=== PATIENT | female | born 1990 | race Hispanic/Latino ===

== ENCOUNTER 2018-08-25 20:14 | Emergency (ER) | payer SELFPAY ==
[2018-08-25] MEDS ORDERED: HYDROCODONE/APAP 10/325 TAB ONE (20:51)
[2018-08-25] MEDS ORDERED: KETOROLAC 30 MG/ML INJ ONE (21:10)
--- NOTE | 2018-08-25 21:13 | EDPHYS ---
Physician Documentation [facility] Name: Tyree Patel Age: 28 yrs Sex: Female : 1990 Arrival Date: 08/25/2018 Time: 20:17 Bed 6 Private MD: ED Physician Kian Pérez HPI: 08/25 20:46 This 28 yrs old Female presents to ER via EMS with complaints of Knee Pain. sergey 20:46 The patient presents with decreased range of motion, pain, that is acute. The sergey complaints affect the left knee. Context: The problem was sustained at a sports field or court. Onset: The symptoms/episode began/occurred just prior to arrival. Modifying factors: The symptoms are alleviated by elevating leg, remaining still, the symptoms are aggravated by movement, weight bearing, bending knee. Associated signs and symptoms: The patient has no apparent associated signs or symptoms. Treatment prior to arrival includes: no previous treatment. The patient has not experienced similar symptoms in the past. 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 - Social history:: Smoking status: Patient/guardian denies using tobacco. - Ebola Screening: : No symptoms or risks identified at this time. - Family history:: not pertinent. ROS: 20:46 Constitutional: Negative for fever, chills, and weight loss, Eyes: Negative for injury, sergey pain, redness, and discharge, ENT: Negative for injury, pain, and discharge, Neck: Negative for injury, pain, and swelling, Cardiovascular: Negative for chest pain, palpitations, and edema, Respiratory: Negative for shortness of breath, cough, wheezing, and pleuritic chest pain, Abdomen/GI: Negative for abdominal pain, nausea, vomiting, diarrhea, and constipation, Back: Negative for injury and pain, : Negative for injury, bleeding, discharge, and swelling, Skin: Negative for injury, rash, and discoloration, Neuro: Negative for headache, weakness, numbness, tingling, and seizure, Psych: Negative for depression, anxiety, suicide ideation, homicidal ideation, and hallucinations, Allergy/Immunology: Negative for hives, rash, and allergies, Endocrine: Negative for neck swelling, polydipsia, polyuria, polyphagia, and marked weight changes, Hematologic/Lymphatic: Negative for swollen nodes, abnormal bleeding, and unusual bruising. 20:46 MS/extremity: Positive for decreased range of motion, pain, swelling, tenderness, of the left knee. Exam: 20:46 Constitutional: This is a well developed, well nourished patient who is awake, alert, sergey and in no acute distress. Head/Face: Normocephalic, atraumatic. Eyes: Pupils equal round and reactive to light, extra-ocular motions intact. Lids and lashes normal. Conjunctiva and sclera are non-icteric and not injected. Cornea within normal limits. Periorbital areas with no swelling, redness, or edema. ENT: Nares patent. No nasal discharge, no septal abnormalities noted. Tympanic membranes are normal and external auditory canals are clear. Oropharynx with no redness, swelling, or masses, exudates, or evidence of obstruction, uvula midline. Mucous membranes moist. Neck: Trachea midline, no thyromegaly or masses palpated, and no cervical lymphadenopathy. Supple, full range of motion without nuchal rigidity, or vertebral point tenderness. No Meningismus. Chest/axilla: Normal chest wall appearance and motion. Nontender with no deformity. No lesions are appreciated. Cardiovascular: Regular rate and rhythm with a normal S1 and S2. No gallops, murmurs, or rubs. Normal PMI, no JVD. No pulse deficits. Respiratory: Lungs have equal breath sounds bilaterally, clear to auscultation and percussion. No rales, rhonchi or wheezes noted. No increased work of breathing, no retractions or nasal flaring. Abdomen/GI: Soft, non-tender, with normal bowel sounds. No distension or tympany. No guarding or rebound. No evidence of tenderness throughout. Back: No spinal tenderness. No costovertebral tenderness. Full range of motion. Skin: Warm, dry with normal turgor. Normal color with no rashes, no lesions, and no evidence of cellulitis. Neuro: Awake and alert, GCS 15, oriented to person, place, time, and situation. Cranial nerves II-XII grossly intact. Motor strength 5/5 in all extremities. Sensory grossly intact. Cerebellar exam normal. Normal gait. Psych: Awake, alert, with orientation to person, place and time. Behavior, mood, and affect are within normal limits. 20:46 Musculoskeletal/extremity: ROM: limited active range of motion, limited passive range of motion, Circulation is intact in all extremities. Sensation intact. Compartment Syndrome exam of affected extremity: is normal. DVT Exam: No signs of deep vein thrombosis. no tenderness, negative Homans' sign noted on exam, no appreciated bluish discoloration, no erythema, no increased warmth, pain, swelling, that is moderate, of the left leg, of the left knee. Vital Signs: 20:19 BP 137 / 73; Pulse 74; Resp 18; Temp 97.8; Pulse Ox 100% on R/A; Weight 83.91 kg (R); ak1 Height 5 ft. 1 in. (154.94 cm) (R); Pain 2/10; 21:40 BP 127 / 72; Pulse 71; Resp 16; Pulse Ox 100% on R/A; ao 20:19 Body Mass Index 34.96 (83.91 kg, 154.94 cm) ak1 MDM: 20:35 Patient medically screened. sergey 20:52 Data reviewed: vital signs, nurses notes, radiologic studies, plain films. [facility] 08/25 20:46 Order name: Knee Left 3 View XRAY; Complete Time: 21:36 [facility] 08/25 20:46 Order name: Ice pack; Complete Time: 20:47 [facility] 08/25 20:46 Order name: Knee Immobilizer; Complete Time: 22:18 [facility] 08/25 20:46 Order name: Crutches; Complete Time: 22:18 sergey Administered Medications: 20:47 Drug: [place] 10 mg-325 mg 1 tabs Route: PO; ea 22:17 Follow up: Response: No adverse reaction ao 21:06 CANCELLED (Duplicate Order): TORadol 60 mg IM once ea 21:06 Drug: TORadol 30 mg Route: IVP; Site: right antecubital; ea 22:18 Follow up: Response: No adverse reaction ao Disposition: 08/25/18 21:12 Discharged to Home. Impression: Other internal derangements of left knee, Internal derangement of knee, Sprain of medial collateral ligament of knee. - Condition is Stable. - Discharge Instructions: Knee Pain, Knee Arthroscopy, Knee Ligament Injury, Arthroscopy. - Prescriptions for Ibuprofen 600 mg Oral Tablet - take 1 tablet by ORAL route every 8 hours As needed take with food; 21 tablet. Tylenol- Codeine #3 300-30 mg Oral Tablet - take 2 tablet by ORAL route every 6 hours As needed; 30 tablet. - Medication Reconciliation Form, Thank You Letter, Antibiotic Education, Prescription Opioid Use, Work release form form. - Follow up: Private Physician; When: 2 - 3 days; Reason: Recheck today's complaints, Continuance of care, Re-evaluation by your physician. Follow up: Piotr Blanton; When: 2 - 3 days; Reason: Recheck today's complaints, Re-evaluation by your physician. - Problem is new. - Symptoms have improved. Signatures: Dispatcher [employer] EDMS Kian Pérez MD MD cha Krenek, Amber RN RN ak1 Ang Freedman RN RN Gricelda Walter RN RN ea Corrections: (The following items were deleted from the chart) 21:06 20:46 TORadol 60 mg IM once ordered. sergey cabral 21:06 21:06 TORadol 60 mg IM once ordered. marianna cabral 22:15 21:12 08/25/2018 21:12 Discharged to Home. Impression: Other internal derangements of ao left knee; Internal derangement of knee; Sprain of medial collateral ligament of knee. Condition is Stable. Discharge Instructions: Knee Pain, Knee Arthroscopy, Knee Ligament Injury, Arthroscopy. Prescriptions for Ibuprofen 600 mg Oral Tablet - take 1 tablet by ORAL route every 8 hours As needed take with food; 21 tablet, Tylenol-Codeine #3 300-30 mg Oral Tablet - take 2 tablet by ORAL route every 6 hours As needed; 30 tablet. and Forms are Medication Reconciliation Form, Thank You Letter, Antibiotic Education, Prescription Opioid Use. Follow up: Private Physician; When: 2 - 3 days; Reason: Recheck today's complaints, Continuance of care, Re-evaluation by your physician. Follow up: Piotr Blanton; When: 2 - 3 days; Reason: Recheck today's complaints, Re-evaluation by your physician. Problem is new. Symptoms have improved. sergey
--- NOTE | 2018-08-25 21:13 | ER ---
Nurse's Notes [facility] Name: Tyree Patel Age: 28 yrs Sex: Female : 1990 Arrival Date: 08/25/2018 Time: 20:17 Bed 6 Private MD: Diagnosis: Other internal derangements of left knee;Internal derangement of knee;Sprain of medial collateral ligament of knee Presentation: 08/25 20:17 Presenting complaint: Patient states: left knee pain s/p collision with player on ak[place] volleyball court. EMS given 4mg zofran, 100mcg fentanyl [employer]ATION[employer]MAN. Transition of care: patient was not received from another setting of care. Onset of symptoms was August 25, 2018. Risk Assessment: Do you want to hurt yourself or someone else? Patient reports no desire to harm self or others. Initial Sepsis Screen: Does the patient meet any 2 criteria? No. Patient's initial sepsis screen is negative. Does the patient have a suspected source of infection? No. Patient's initial sepsis screen is negative. Care prior to arrival: 20g IV to right forearm. 20:17 Method Of Arrival: EMS: [facility] ak 20:17 Acuity: RAVIN 4 ak1 Triage Assessment: 20:19 General: Appears uncomfortable, Behavior is cooperative. Pain: Complains of pain in ak1 left knee. 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 - Social history:: Smoking status: Patient/guardian denies using tobacco. - Ebola Screening: : No symptoms or risks identified at this time. - Family history:: not pertinent. Screenin:20 Abuse screen: Denies threats or abuse. Denies injuries from another. Nutritional ak1 screening: No deficits noted. Tuberculosis screening: No symptoms or risk factors identified. Fall Risk None identified. Assessment: 20:24 General: Appears in no apparent distress. uncomfortable, Behavior is calm, cooperative, ao appropriate for age. Pain: Complains of pain in Left knee pain with no CO pain at this time since patient got Fentanyl from EMS. Neuro: Level of Consciousness is awake, alert, obeys commands, Oriented to person, place, time, situation, Appropriate for age Moves all extremities. Full function Speech is normal, Facial symmetry appears normal. Cardiovascular: Heart tones S1 S2 Capillary refill < 3 seconds Patient's skin is warm and dry. Respiratory: Airway is patent Respiratory effort is even, unlabored, Respiratory pattern is regular, symmetrical. GI: Abdomen is non-distended. : No signs and/or symptoms were reported regarding the genitourinary system. EENT: No signs and/or symptoms were reported regarding the EENT system. Derm: Skin is intact, Skin is pink, warm \T\ dry. normal, Skin temperature is warm. Musculoskeletal: Swelling present in left knee Reports pain in left knee Pain is 2 out of 10 on a pain scale. Injury Description: patient playing ball when got injure with another player. 21:20 Reassessment: Patient appears in no apparent distress at this time. Patient and/or ao family updated on plan of care and expected duration. Pain level reassessed. 22:14 Reassessment: DC instructions given to patient. Patient agree to follow up with ortho. ao no questions at this time. Vital Signs: 20:19 BP 137 / 73; Pulse 74; Resp 18; Temp 97.8; Pulse Ox 100% on R/A; Weight 83.91 kg (R); ak1 Height 5 ft. 1 in. (154.94 cm) (R); Pain 2/10; 21:40 BP 127 / 72; Pulse 71; Resp 16; Pulse Ox 100% on R/A; ao 20:19 Body Mass Index 34.96 (83.91 kg, 154.94 cm) ak1 ED Course: 20:17 Patient arrived in ED. ak1 20:18 Triage completed. ak1 20:19 Arm band placed on Patient placed in an exam room, on a stretcher, on pulse oximetry, ak1 Patient notified of wait time. 20:20 Patient has correct armband on for positive identification. Bed in low position. Call ak1 light in reach. Side rails up X2. Pulse ox on. NIBP on. 20:20 Maintain EMS IV. Dressing intact. Site clean \T\ dry. Gauge \T\ site: 20g right forearm.. ak 1 20:24 Freedman, Ang, RN is Primary Nurse. ao 20:35 Kian Pérez MD is Attending Physician. sergey 21:10 Knee Left 3 View XRAY In Process Unspecified. EDMS 21:12 Piotr Blanton MD is Referral Physician. sergey 22:13 No provider procedures requiring assistance completed. IV discontinued, intact, ao bleeding controlled, No redness/swelling at site. Pressure dressing applied. Administered Medications: 20:47 Drug: [place] 10 mg-325 mg 1 tabs Route: PO; ea 22:17 Follow up: Response: No adverse reaction ao 21:06 CANCELLED (Duplicate Order): TORadol 60 mg IM once ea 21:06 Drug: TORadol 30 mg Route: IVP; Site: right antecubital; ea 22:18 Follow up: Response: No adverse reaction ao Outcome: 21:12 Discharge ordered by . sergey 22:13 Discharged to home ambulatory, with crutches. ao 22:13 Condition: stable 22:13 Discharge instructions given to patient, Instructed on discharge instructions, follow up and referral plans. Demonstrated understanding of instructions, follow-up care, medications, Prescriptions given X 2. 22:15 Patient left the ED. ao Signatures: Dispatcher [employer] EDGA Kian Pérez MD MD cha Krenek, Amber RN RN ak1 Ang Freedman, RN RN Gricelda Walter RN RN marianna
--- NOTE | 2018-08-25 21:22 | RAD REPORT ---
EXAM DESCRIPTION: RAD - Knee Left 3 View - 08/25/2018 9:10 pm CLINICAL HISTORY: Knee pain following blunt force trauma COMPARISON: None. FINDINGS: No gross fracture deformity seen. No dislocation or periosteal reaction.No joint effusion identified. On the AP projection there is a small bone density adjacent to the medial femoral condyle s. This is not identifiable on the other projections. Traumatic bone avulsion is unlikely. No joint s pace narrowing. No soft tissue abnormality. IMPRESSION: No fracture confirmed on this study and no joint effusion or other acute process seen. Clinical concerns for internal derangement or occult bony injury could be further assessed with MR im aging.
== END 2018-08-25 22:15 | disposition home or self-care (01) ==
LOC: ER 20:14
DX: S83.412A Sprain of medial collateral ligament of left knee, initial encounter (principal); M23.8X2 Other internal derangements of left knee; W50.0XXA Accidental hit or strike by another person, initial encounter; Y93.68 Activity, volleyball (beach) (court); Y92.318 Other athletic court as the place of occurrence of the external cause; Y99.8 Other external cause status
CPT/HCPCS: 96374; 99284

== ENCOUNTER 2020-04-18 03:52 | Emergency (ER) | payer BC ==
--- OUTSIDE RECORDS SUMMARY | 2020-04-18 03:56 | XMS REPORT | Continuity of Care Document ---
:1990 Author Organization [facility] t Address [address] [place] [address] Care Team Providers Name Role Phone Unavailable Unavailable Unavailable Payers Payer Name Policy Type Policy Number Effective Date Expiration Date S ource Problems This patient has no known problems. Allergies, Adverse Reactions, Alerts Allergy Allergy Status Severity Reaction(s) Onset Inactive Treating Comm ents Source Name Type Date Date Clinician No Known DA Active U 2020-0 [facility] [place] No Known DA Active U 2020-0 [facility] [place] No Known DA Active U 2019-0 [facility] [place] No Known DA Active U 2014-0 [facility] [place] Medications This patient has no known medications. Procedures This patient has no known procedures. Results Test Description Test Time Test Comments Results Result Comments Source FALLOPIAN 2020-02-28 TUBE,STERILIZATION 11:40:00 RUN DATE: 02/28/20 [facility] PAGE 1 RUN TIME: 1338 Specimen Inquiry RUN USER: INTERFACE PATIENT: JOHANNA HERNANDEZ LOC: [facility] U #: [id number] AGE/SX: 29/F ROOM: [facility] RE02/26/20REG DR: Naomi Saldivar DO : [birth year] BED: A DIS: 02/28/20 STATUS: DIS IN TLOC: SPEC #: [id number] RECD: 02/26/20 STATUS: DANIEL SIMEON #: [id number] RADHA: 02/26/20- SUBM DR: Naomi Saldivar DO ENTERED: 02/27/20-958 SP TYPE: [facility] DR: ORDERED: LEVEL II SURGIC/2 CODES: C97092 - FALLOPIAN TUBE PROCEDURES: LEVEL II SURGIC (Incomplete) TISSUES: FALLOPIAN TUBE, NOS - BILATERAL FALLOPIAN TUBES CLINICAL HISTORY Not provided (wpd) FINAL DIAGNOSIS Right fallopian tube, sterilization salpingectomy: - completely transected unremarkable fallopian tube Left fallopian tube, sterilization salpingectomy: - completely transected unremarkable fallopian tube CPT code(s): 86891 x2 [facility]/ GROSS DESCRIPTION ANATOMIC SOURCE OF TISSUE (per Requisition): Left and right fallopian tubes (received in 2 containers) Each specimen is labeled with the patient's name and medical record number. Specimen #1 is designated "right" and consists of a 6 x 0.6 x 0.5 cm segment of odom fallopian tube with fimbria. The entire fimbria and two cross-sections of the tube are submitted in A1. Specimen #2 is designated "left" and consists of a 4 x 0.6 x 0.6 cm segment of odom fallopian tube with fimbria. The entire fimbria and two cross-sections of the tube are submitted in B1. licha/wpelizabeth 02/27/20 Signed Brittny Grady MD 02/28/20 1140 END OF REPORT HGB HCT 2020-02-27 06:26:00 Test Item Value Reference Range Interpretation Comme nts HEMOGLOBIN (test code = HGB) 7.7 g/dL 10.7-13.9 L Results verified by repeat analysis HEMATOCRIT (test code = HCT) 25.3 % 32.1-42.1 L Results verified by repeat analysis [id number] 17:12:00 Test Item Value Reference Range Interpretation Comments GLUBED (test code = GLUBED) 85 mg/dL 65-110 N [id number] 15:31:00 Test Item Value Reference Range Interpretation Comments GLUBED (test code = GLUBED) 103 mg/dL 65-110 N Coronavirus 2019 nCoV [id number] 10:32:00 Test Item Value Reference Range Interpretation Comments Coronavirus 2019 nCoV Negative Negative RESUL TS CALLED TO LDU Bedside (test code = RNREAD BACK & CONFIRMED? [id number]) JOSE DAVID Hanna 02/26/20 1032 This resul t does not rule out co-infections w ith otherpathogens. * False negative result s may occur if a spec imen isimproperly co llected, transported or handled. False negativer esults may also occur if amplification i nhibitors arepresent in t he specimen or if inadequate leve ls of virusesare pres ent in the specimen. * As with any molecular t est, if the virus mutat es in thetarget regio n, COVID-19 may no t be detected or may bedetected less predictably.HARLEY T PERFORMED UNDER AN EMERGENCY USE AUTHORIZATION F ROM FDA AG HEPATITIS B [id number] 09:45:00 Test Item Value Reference Range Interpretation Comments AG HEPATITIS B SURFACE (test code NONREACTIVE NONREACTIVE = HBSAG) AB HEPATITIS C [id number] 09:45:00 Test Item Value Reference Range Interpretation Comments AB HEPATITIS C (test code = NONREACTIVE NONREACTIVE HCVAB) SIGNAL TO CUTOFF (test code = 0.14 <0.80 N CUTOFF) AB [id number] 09:45:00 Test Item Value Reference Range Interpretation Comments AB TREPONEMA (test code = TREPAB) NONREACTIVE NONREACTIVE AG HEPATITIS B [id number] 09:13:00 Test Item Value Reference Range Interpretation Comments AG HEPATITIS B SURFACE (test code NONREACTIVE NONREACTIVE = HBSAG) AB HEPATITIS C [id number] 09:13:00 Test Item Value Reference Range Interpretation Comments AB HEPATITIS C (test code = HCVAB) NONREACTIVE SIGNAL TO CUTOFF (test code = CUTOFF) <0.80 AB [id number] 09:13:00 Test Item Value Reference Range Interpretation Comments AB TREPONEMA (test code = TREPAB) NONREACTIVE NONREACTIVE CBC W/AUTO [id number] 08:56:00 Test Item Value Reference Range Interpretation Comments WHITE BLOOD CELL 13.2 K/mm3 6.6-12.1 H (test code = WBC) RED BLOOD CELL (test 4.44 M/mm3 3.45-5.01 N code = RBC) HEMOGLOBIN (test code 9.9 g/dL 10.7-13.9 L = HGB) HEMATOCRIT (test code 32.3 % 32.1-42.1 N = HCT) MEAN CELL VOLUME 73 fL 84.1-94.8 L (test code = MCV) MEAN CELL HGB (test 22.3 pg 27-35 L code = MCH) MEAN CELL HGB 30.7 gm/dL 32.2-34.1 L CONCETRATION (test code = MCHC) RED CELL DISTRIBUTION 22.0 % 12.4-16.5 H WIDTH (test code = RDW) PLATELET COUNT (test 189 K/mm3 133-385 N code = PLT) IMMATURE PLATELET 10.2 % 0.0-10.8 N FRACTION (test code = IPF) MEAN PLATELET VOLUME TEST NOT 9.1-12.7 (test code = MPV) PERFORMED fl NEUTROPHIL % (test 70.8 % 56.5-79.4 N code = NT%) LYMPHOCYTE % (test 20.5 % 14.3-34.3 N code = LY%) MONOCYTE % (test code 6.2 % 5.1-10.4 N = MO%) EOSINOPHIL % (test 1.4 % 0.1-3.0 N code = EO%) BASOPHIL % (test code 0.3 % 0.1-1.0 N = BA%) NEUTROPHIL # (test 9.4 K/mm3 code = NT#) LYMPHOCYTE # (test 2.7 K/mm3 code = LY#) MONOCYTE # (test code 0.8 K/mm3 = MO#) EOSINOPHIL # (test 0.18 K/mm3 code = EO#) BASOPHIL # (test code 0.0 K/mm3 = BA#) RBC MORPHOLOGY ABNORMAL NORMAL HYPO 2+ANISO 2+ REQUIRED (test code = RBCM) PLATELET MORPHOLOGY NORMAL NORMAL REQUIRED (test code = PLTMR) COMPREHENSIVE METABOLIC [id number] 08:44:00 Test Item Value Reference Range Interpretation Comments SODIUM (test code = NA) 137 mEq/L 135-145 N POTASSIUM (test code = K) 4.3 mEq/L 3.5-5.0 N CHLORIDE (test code = CL) 103 mEq/L 100-115 N CARBON DIOXIDE (test code = CO2) 24 mEq/L 22-31 N ANION GAP (test code = GAP) 14.10 10-20 N GLUCOSE (test code = GLU) 90 mg/dL 65-110 N BLOOD UREA NITROGEN (test code = 8 mg/dL 7-18 N BUN) GLOMERULAR FILTRATION RATE (test 100 ml/min >60 N code = GFR) CREATININE (test code = CREAT) 0.7 mg/dL 0.5-1.0 N TOTAL PROTEIN (test code = PROT) 6.8 gm/dL 6.3-8.2 N ALBUMIN (test code = ALB) 2.7 gm/dL 3.4-4.8 L CALCIUM (test code = CA) 8.7 mg/dL 8.4-10.2 N BILIRUBIN TOTAL (test code = 0.4 mg/dL 0.2-1.0 N BILT) SGOT/AST (test code = AST) 14 units/L 15-37 L SGPT/ALT (test code = ALT) 16 units/L 12-78 N ALKALINE PHOSPHATASE TOTAL (test 139 units/L 46-116 H code = ALKP) CBC W/AUTO [id number] 08:39:00 Test Item Value Reference Range Interpretation Comments WHITE BLOOD CELL (test 13.2 K/mm3 6.6-12.1 H code = WBC) RED BLOOD CELL (test 4.44 M/mm3 3.45-5.01 N code = RBC) HEMOGLOBIN (test code = 9.9 g/dL 10.7-13.9 L HGB) HEMATOCRIT (test code = 32.3 % 32.1-42.1 N HCT) MEAN CELL VOLUME (test 73 fL 84.1-94.8 L code = MCV) MEAN CELL HGB (test code 22.3 pg 27-35 L = MCH) MEAN CELL HGB 30.7 gm/dL 32.2-34.1 L CONCETRATION (test code = MCHC) RED CELL DISTRIBUTION 22.0 % 12.4-16.5 H WIDTH (test code = RDW) PLATELET COUNT (test 189 K/mm3 133-385 N code = PLT) IMMATURE PLATELET 10.2 % 0.0-10.8 N FRACTION (test code = IPF) MEAN PLATELET VOLUME TEST NOT PERFORMED fl 9.1-12.7 (test code = MPV) NEUTROPHIL % (test code 70.8 % 56.5-79.4 N = NT%) LYMPHOCYTE % (test code 20.5 % 14.3-34.3 N = LY%) MONOCYTE % (test code = 6.2 % 5.1-10.4 N MO%) EOSINOPHIL % (test code 1.4 % 0.1-3.0 N = EO%) BASOPHIL % (test code = 0.3 % 0.1-1.0 N BA%) NEUTROPHIL # (test code 9.4 K/mm3 = NT#) LYMPHOCYTE # (test code 2.7 K/mm3 = LY#) MONOCYTE # (test code = 0.8 K/mm3 MO#) EOSINOPHIL # (test code 0.18 K/mm3 = EO#) BASOPHIL # (test code = 0.0 K/mm3 BA#) RBC MORPHOLOGY REQUIRED NORMAL (test code = RBCM) PLATELET MORPHOLOGY NORMAL REQUIRED (test code = PLTMR)
[2020-04-18] MEDS ORDERED: MAGNE/ALUM HYDROXD 30 ML UCUP ONE (04:27)
[2020-04-18] MEDS ORDERED: LIDOCAINE VISCOUS 2% SOLN 15 ML UDC ONE (04:27)
[2020-04-18 05:23] LABS: Absolute Lymphocytes (CBC) 2.1 K/uL (0.7-4.9); Basophils % 0.6 % (0-1.3); Hematocrit 33.6 % (36.0-45.0); Lymphocytes % 27.7 % (15.3-44.8); MPV 10.7 fL (7.6-11.3); RBC Red Blood Cell Count 4.63 M/uL (3.86-4.86)
[2020-04-18 05:41] LABS: ALT/SGPT 35 U/L (12-78); AST/SGOT 20 U/L (15-37); Albumin 3.5 g/dL (3.4-5.0); Alkaline Phosphatase 81 U/L (45-117); BUN Blood Urea Nitrogen 15 mg/dL (7-18); Bicarbonate 24 mmol/L (21-32); Bilirubin Direct 0.1 mg/dL (0-0.2); Bilirubin Total 0.3 mg/dL (0.2-1.0); Glucose Level 102 mg/dL (74-106); Lipase 106 U/L (73-393); Potassium 3.9 mmol/L (3.5-5.1); Protein, Total 6.9 g/dL (6.4-8.2); Sodium Level 143 mmol/L (136-145); Troponin (Emerg Dept Use Only) < 0.02 ng/mL (0.0-0.045)
--- NOTE | 2020-04-18 05:46 | ER ---
Nurse's Notes [facility] Name: Tyree Patel Age: 29 yrs Sex: Female : 1990 Arrival Date: 04/18/2020 Time: 03:57 Bed 7 Private MD: Tomas Andre Diagnosis: Cholelithiasis Presentation: 04/18 03:58 Chief complaint: Chief complaint: Patient states: Chest pain and epigastric pain that sg began around noon yesterday, reports having the pain worsen this morning. Denies N/V/D/Fever, denies shortness of breath at this time for triage. Coronavirus screen: Proceed with normal triage. Ebola Screen: Patient negative for fever greater than or equal to 101.5 degrees Fahrenheit, and additional compatible Ebola Virus Disease symptoms Patient denies exposure to infectious person. Patient denies travel to an Ebola-affected area in the 21 days before illness onset. No symptoms or risks identified at this time. Initial Sepsis Screen: Does the patient meet any 2 criteria? No. Patient's initial sepsis screen is negative. Does the patient have a suspected source of infection? No. Patient's initial sepsis screen is negative. Risk Assessment: Do you want to hurt yourself or someone else? Patient reports no desire to harm self or others. 03:58 Acuity: RAVIN 3 sg 03:58 Method Of Arrival: Ambulatory 03:58 Onset of symptoms was April 17, 2020. Care prior to arrival: None. Transition of care: sg patient was not received from another setting of care. 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 - Social history:: Smoking status: Patient denies any tobacco usage or history of. - Family history:: not pertinent. - Hospitalizations: : No recent hospitalization is reported. Screenin:27 Abuse screen: Denies threats or abuse. Nutritional screening: No deficits noted. jd3 Tuberculosis screening: No symptoms or risk factors identified. Fall Risk Ambulatory Aid- None/Bed Rest/Nurse Assist (0 pts). Gait- Normal/Bed Rest/Wheelchair (0 pts) Mental Status- Oriented to own ability (0 pts). Total Bateman Fall Scale indicates No Risk (0-24 pts). Assessment: 04:25 General: Appears in no apparent distress. uncomfortable, Behavior is calm, cooperative, jd3 appropriate for age. Pain: Complains of pain in chest and epigastric area Pain does not radiate. Quality of pain is described as aching, heavy, pressure, Pain began 1 day ago. Neuro: Level of Consciousness is awake, alert, obeys commands, Oriented to person, place, time, situation. Cardiovascular: Reports chest pain, Heart tones S1 S2 present Capillary refill < 3 seconds Patient's skin is warm and dry. Rhythm is regular. Respiratory: Airway is patent Respiratory effort is even, unlabored, Respiratory pattern is regular, symmetrical, Breath sounds are clear bilaterally. Denies cough, shortness of breath. GI: No signs and/or symptoms were reported involving the gastrointestinal system. Abdomen is round non-distended, Abd is soft X 4 quads Abdomen is tender to palpation in epigastric area Reports upper abdominal pain. : No signs and/or symptoms were reported regarding the genitourinary system. EENT: No signs and/or symptoms were reported regarding the EENT system. Derm: Skin is intact, Skin is dry, Skin is normal, Skin temperature is warm. Musculoskeletal: Circulation, motion, and sensation intact. Range of motion: intact in all extremities. 05:14 Reassessment: Patient appears in no apparent distress at this time. Patient and/or jd3 family updated on plan of care and expected duration. Pain level reassessed. Patient is alert, oriented x 3, equal unlabored respirations, skin warm/dry/pink. Patient states feeling better. 05:56 Reassessment: Patient appears in no apparent distress at this time. Patient and/or jd3 family updated on plan of care and expected duration. Pain level reassessed. Patient is alert, oriented x 3, equal unlabored respirations, skin warm/dry/pink. pt reported understanding of discharge instructions. Patient states feeling better. Vital Signs: 04:17 BP 142 / 79; Pulse 55; Resp 19 S; Temp 97.8(O); Pulse Ox 100% on R/A; Weight 88.45 kg jd3 (R); Height 5 ft. 11 in. (180.34 cm) (R); Pain 2/10; 05:14 BP 134 / 80; Pulse 62; Resp 19 S; Pulse Ox 100% on R/A; jd3 04:17 Body Mass Index 27.20 (88.45 kg, 180.34 cm) jd3 ED Course: 03:57 Patient arrived in ED. es 03:57 Tomas Andre MD is Private Physician. es 03:58 Arm band placed on. sg 03:59 Triage completed. sg 03:59 Sin Bustamante MD is Attending Physician. rn 03:59 Wild Ambriz RN is Primary Nurse. jd3 04:28 Patient has correct armband on for positive identification. Bed in low position. Call jd3 light in reach. Side rails up X 1. child monitor on. Pulse ox on. NIBP on. 04:28 Patient maintains SpO2 saturation greater than 95% on room air. jd3 04:54 XRAY Chest Pa And Lat (2 Views) In Process Unspecified. EDMS 05:14 Inserted saline lock: 20 gauge in left wrist, using aseptic technique. Blood collected. jd3 05:45 Bienvenido Conway MD is Referral Physician. rn 05:55 No provider procedures requiring assistance completed. IV discontinued, intact, jd3 bleeding controlled, No redness/swelling at site. Pressure dressing applied. Administered Medications: 04:25 Drug: GI Cocktail without - (Maalox Suspension 30 ml, Lidocaine Liquid 2 % 15 jd3 ml) Route: PO; 05:20 Follow up: Response: No adverse reaction jd3 Outcome: 05:46 Discharge ordered by MD. rn 05:56 Discharged to home ambulatory, with family. jd3 05:56 Condition: stable 05:56 Discharge instructions given to patient, Instructed on discharge instructions, follow up and referral plans. Demonstrated understanding of instructions, follow-up care. 05:56 Patient left the ED. jd3 Signatures: Dispatcher [employer] EDMS Kevin Rico RN RN Britney Sahu Roman, MD MD rn Davies, Jonathon, RN RN jd3 Corrections: (The following items were deleted from the chart) 04:11 03:58 Chief complaint: sg sg 04:18 03:58 Chief complaint: Patient states: Chest pain that began around Noon yesterday, sg reports having the pain worsen this morning. Denies N/V/D/Fever, denies shortness of breath at this time for triage Chief complaint: Patient states: Chest pain that began around Noon yesterday, reports having the pain worsen this morning. Denies N/V/D/Fever, denies shortness of breath at this time for triage sg
--- NOTE | 2020-04-18 05:47 | EDPHYS ---
Physician Documentation [facility] Name: Tyree Patel Age: 29 yrs Sex: Female : 1990 Arrival Date: 04/18/2020 Time: 03:57 Bed 7 Private MD: Tomas Andre ED Physician Sin Bustamante HPI: 04/18 04:29 This 29 yrs old Female presents to ER via Ambulatory with complaints of Chest rn Pain. 04:29 The patient or guardian reports chest pain that is located primarily in the substernal rn area, epigastric area. The pain radiates to The chest pain is described as a heaviness. Duration: The patient or guardian reports multiple episodes, that are intermittent. Modifying factors: The symptoms are alleviated by nothing. the symptoms are aggravated by nothing. Severity of pain: At its worst the pain was mild in the emergency department the pain is unchanged. The patient has not experienced similar symptoms in the past. Reports since yesterday feeling intermittent chest heaviness, epigastric pain, not worse with movement, + radiates to back, mild pain, has never had before. Just had baby 2 months ago. No hx of early cardiac problems in family. No hx of dvt/pe. no leg swelling. No sob. No vomiting/diarrhea. No cough. . 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 - Social history:: Smoking status: Patient denies any tobacco usage or history of. - Family history:: not pertinent. - Hospitalizations: : No recent hospitalization is reported. ROS: 04:29 Constitutional: Negative for fever, chills, and weight loss, Eyes: Negative for injury, rn pain, redness, and discharge, Neck: Negative for injury, pain, and swelling, Cardiovascular: Negative for palpitations, and edema, Respiratory: Negative for shortness of breath, cough, wheezing, and pleuritic chest pain, Abdomen/GI: Negative for nausea, vomiting, diarrhea, and constipation, Back: Negative for injury : Negative for injury, bleeding, discharge, and swelling, MS/Extremity: Negative for injury and deformity, Skin: Negative for injury, rash, and discoloration, Neuro: Negative for headache, weakness, numbness, tingling, and seizure. Exam: 04:29 Constitutional: This is a well developed, well nourished patient who is awake, alert, rn appears anxious Head/Face: Normocephalic, atraumatic. Cardiovascular: Regular rate and rhythm with a normal S1 and S2. No gallops, murmurs, or rubs. No JVD. No pulse deficits. Respiratory: Speaking full sentences, clear bilateral breath sounds that are equal. No increased work of breathing, no retractions or nasal flaring. Abdomen/GI: soft, mild epigastric and RUQ tenderness, neg graham, no rebound Skin: Warm, dry with normal turgor. Normal color with no rashes, no lesions, and no evidence of cellulitis. MS/ Extremity: Pulses equal, no cyanosis. Neurovascular intact. Full, normal range of motion. Equal circumference. Neuro: Awake and alert, GCS 15, oriented to person, place, time, and situation. Cranial nerves II-XII grossly intact. Motor strength 5/5 in all extremities. Sensory grossly intact. Cerebellar exam normal. Normal gait. 05:07 ECG was reviewed by the Attending Physician. rn Vital Signs: 04:17 BP 142 / 79; Pulse 55; Resp 19 S; Temp 97.8(O); Pulse Ox 100% on R/A; Weight 88.45 kg jd3 (R); Height 5 ft. 11 in. (180.34 cm) (R); Pain 2/10; 05:14 BP 134 / 80; Pulse 62; Resp 19 S; Pulse Ox 100% on R/A; jd3 04:17 Body Mass Index 27.20 (88.45 kg, 180.34 cm) jd3 Procedures: 05:02 Ultrasound: Type: Gallbladder bedside u/s, performed by the emergency department rn physician, Bedside gallbladder u/s performed by Dr. Bustamante, + several large gallstones, GBW 2 mm, no PCF. All images shown to patient and explained in detail. . MDM: 03:59 Patient medically screened. rn 05:42 Differential diagnosis: anxiety, chest wall pain, cholecystitis, Cholelithiasis rn esophagitis, gastritis, gastroesophageal reflux disease (GERD), pancreatitis, pleurisy, pulmonary embolus. Data reviewed: vital signs, nurses notes, lab test result(s), EKG, radiologic studies, plain films, ultrasound, and as a result, I will discharge patient. Test interpretation: by ED physician or midlevel provider: ECG, plain radiologic studies, CXR neg for pneumothorax or infiltrate. Counseling: I had a detailed discussion with the patient and/or guardian regarding: the historical points, exam findings, and any diagnostic results supporting the discharge/admit diagnosis, lab results, radiology results, the need for outpatient follow up, to return to the emergency department if symptoms worsen or persist or if there are any questions or concerns that arise at home. Response to treatment: the patient's symptoms have markedly improved after treatment, and as a result, I will discharge patient. Special discussion: Based on the patient's history, exam, and Dx evaluation, there is no indication for emergent intervention or inpatient Tx. It is understood by the patient/guardian that if the Sx's persist or worsen they need to return immediately for re-evaluation. Based on the patient's Hx, exam, and Dx evaluation, there is no indication for emergent surgery or inpatient Tx. It is understood by the patient/guardian that if the Sx's persist or worsen they need to return immediately for re-evaluation. I discussed with the patient/guardian in detail that at this point there is no indication for admission to the hospital. It is understood, however, that if the symptoms persist or worsen the patient needs to return immediately for re-evaluation. Based on the history and exam findings, there is no indication for further emergent testing or inpatient evaluation. I discussed with the patient/guardian the need to see the general surgeon for further evaluation of the symptoms. ED course: Pt with neg CXR/ecg/d-dimer, normal LFTs/lipase/CBC, will dc home with gen surgery f/u for cholelithiasis. No signs or symptoms of cholecystitis. . 04/18 04:16 Order name: CBC with Diff; Complete Time: 05: rn 04/18 04:16 Order name: Basic Metabolic Panel; Complete Time: :42 rn 04/18 04:16 Order name: Troponin (emerg Dept Use Only); Complete Time: : rn 04/18 04:16 Order name: LFT's; Complete Time: :42 rn 04/18 04:16 Order name: Lipase; Complete Time: 05:42 rn 04/18 04:17 Order name: D-Dimer; Complete Time: 05:42 rn 04/18 04:16 Order name: IV Start; Complete Time: 05:14 rn 04/18 04:16 Order name: EKG; Complete Time: 04:18 rn 04/18 04:16 Order name: EKG - Nurse/Tech; Complete Time: 04:17 rn 04/18 04:16 Order name: XRAY Chest Pa And Lat (2 Views) rn EC:07 Rate is 53 beats/min. Rhythm is regular. QRS [place] is Normal. NM interval is normal. QRS rn interval is normal. QT interval is normal. No Q waves. T waves are Normal. No ST changes noted. Clinical impression: Sinus bradycardia. Interpreted by me. Reviewed by me. Administered Medications: 04:25 Drug: GI Cocktail without - (Maalox Suspension 30 ml, Lidocaine Liquid 2 % 15 jd3 ml) Route: PO; 05:20 Follow up: Response: No adverse reaction jd3 Disposition: 04/18/20 05:46 Discharged to Home. Impression: Cholelithiasis. - Condition is Stable. - Discharge Instructions: Cholelithiasis. - Medication Reconciliation Form, Thank You Letter, Antibiotic Education, Prescription Opioid Use form. - Follow up: Bienvenido Conway MD; When: As needed; Reason: If symptoms return, Recheck today's complaints, Re-evaluation by your physician. - Problem is new. - Symptoms have improved. Signatures: Dispatcher [employer] EDMS Kevin Rico RN RN sg Nieto, Roman, MD MD rn Davies, Jonathon, RN RN jd3 Corrections: (The following items were deleted from the chart) 05:56 05:46 04/18/2020 05:46 Discharged to Home. Impression: Cholelithiasis. Condition is jd3 Stable. Forms are Medication Reconciliation Form, Thank You Letter, Antibiotic Education, Prescription Opioid Use. Follow up: Bienvenido Conway; When: As needed; Reason: If symptoms return, Recheck today's complaints, Re-evaluation by your physician. Problem is new. Symptoms have improved. rn
[2020-04-18 06:14] VITALS: TEMP 97.8; O2SAT 100
[2020-04-18 06:18] VITALS: BP 134/80
--- NOTE | 2020-04-18 07:44 | RAD REPORT ---
EXAM DESCRIPTION: Dianne Carrington And [place] (2 Views)04/18/2020 4:53 am CLINICAL HISTORY: Chest pain COMPARISON: None FINDINGS: Artifact overlies anterior neck The lungs appear clear of acute infiltrate. The heart is normal size IMPRESSION: No acute abnormalities displayed
== END 2020-04-18 05:56 | disposition home or self-care (01) ==
LOC: ER 03:52
DX: K80.20 Calculus of gallbladder without cholecystitis without obstruction (principal)
CPT/HCPCS: 36415; 71046; 80048; 80076; 83690; 84484; 85025; 85379; 93005; 99285

== ENCOUNTER 2020-06-08 02:48 | Emergency (ER) | payer BC ==
--- OUTSIDE RECORDS SUMMARY | 2020-06-08 02:51 | XMS REPORT | Summary of Care ---
:1990 Author Organization [facility] Address [address] [place], [place] [address]- Encounter HQ Donal(FIN) [id number] Date(s): 04/30/20 [facility] [address] [place] [address]- Attending Physician: Pablo Morrison MD Referring Physician: Pablo Morrison MD Vital Signs Most recent to oldest [Reference Range]: 1 Height 154.94 cm (04/25/20 7:08 AM) Temperature Oral [96.4-99.1 DegF] 98.9 DegF (04/25/20 3:57 PM) Systolic Blood Pressure [90-140 mmHg] 125 mmHg (04/25/20 3:57 PM) Respiratory Rate [14-20 BRMIN] 20 BRMIN (04/25/20 3:57 PM) Peripheral Pulse Rate [60-100 bpm] 74 bpm (04/25/20 3:57 PM) Weight 86.364 kg (04/25/20 7:08 AM) Body Mass Index 35.98 m2 (04/25/20 7:08 AM) Problem List Condition Effective Dates Status Health Status Informant Gall stones(Confirmed) Active Allergies, Adverse Reactions, Alerts No Known Allergies Medications Tylenol 325 mg oral tablet 650 mg = 2 tab, PO, Q4H, PRN Pain, # 120 tab, 0 Refill(s) Start Date: 04/25/20 Stop Date: 05/05/20 Status: Ordered Results Most recent to oldest [Reference Range]: 1 Neutrophils # [1.5-8.1 K/CMM] 2.6 K/CMM (04/25/20 3:40 PM) Lymphocytes # [1.0-5.5 K/CMM] 1.2 K/CMM (04/25/20 3:40 PM) Monocytes # [0.0-0.8 K/CMM] 0.4 K/CMM (04/25/20 3:40 PM) eGFR 98 mL/min/1.73m2 1 *NA* (04/25/20 3:40 PM) ABO/Rh O POS *Unknown* (04/25/20 3:40 PM) A/G Ratio [0.7-1.6] 0.9 (04/25/20 3:40 PM) Antibody Scrn Negative (04/25/20 3:40 PM) Albumin Lvl [3.5-5.0 g/dL] 3.7 g/dL (04/25/20 3:40 PM) Alk Phos [39-136 unit/L] 91 unit/L (04/25/20 3:40 PM) ALT [0-65 unit/L] 36 unit/L (04/25/20 3:40 PM) AGAP [10.0-20.0 mEq/L] 10.7 mEq/L (04/25/20 3:40 PM) AST [0-37 unit/L] 25 unit/L (04/25/20 3:40 PM) B/C Ratio [6-25] 10 (04/25/20 3:40 PM) Basophils [0.0-1.0 %] 0.3 % (04/25/20 3:40 PM) BUN [7-22 mg/dL] 8 mg/dL (04/25/20 3:40 PM) Calcium Lvl [8.5-10.5 mg/dL] 8.8 mg/dL (04/25/20 3:40 PM) Chloride Lvl [95-109 mEq/L] 107 mEq/L (04/25/20 3:40 PM) CO2 [24-32 mEq/L] 28 mEq/L (04/25/20 3:40 PM) Creatinine Lvl [0.50-1.40 mg/dL] 0.82 mg/dL (04/25/20 3:40 PM) Bili Direct [0.0-0.3 mg/dL] <0.1 mg/dL (04/25/20 3:40 PM) Eosinophils [0.0-4.0 %] 0.6 % (04/25/20 3:40 PM) Globulin [2.7-4.2 g/dL] 4.1 g/dL (04/25/20 3:40 PM) Glucose Lvl [70-99 mg/dL] 94 mg/dL (04/25/20 3:40 PM) Hct [36.0-48.0 %] 35.4 % *LOW* (04/25/20 3:40 PM) Hgb [12.0-16.0 g/dL] 11.3 g/dL *LOW* (04/25/20 3:40 PM) INR [0.85-1.17] 1.01 (04/25/20 3:40 PM) Potassium Lvl [3.5-5.1 mEq/L] 4.7 mEq/L (04/25/20 3:40 PM) Lymphocytes [20.0-40.0 %] 28.4 % (04/25/20 3:40 PM) MCH [27.0-31.0 pg] 23.3 pg *LOW* (04/25/20 3:40 PM) MCHC [32.0-36.0 g/dL] 31.9 g/dL *LOW* (04/25/20 3:40 PM) MCV [80.0-98.0 fL] 72.9 fL *LOW* (04/25/20 3:40 PM) Microcyte [None Seen] 1+ *ABN* (04/25/20 3:40 PM) Monocytes [2.0-12.0 %] 9.2 % (04/25/20 3:40 PM) MPV [7.4-10.4 fL] 10.7 fL *HI* (04/25/20 3:40 PM) Sodium Lvl [135-145 mEq/L] 141 mEq/L (04/25/20 3:40 PM) Platelet [133-450 K/CMM] 173 K/CMM (04/25/20 3:40 PM) Segs [45.0-75.0 %] 61.5 % (04/25/20 3:40 PM) Total Protein [6.4-8.4 g/dL] 7.8 g/dL (04/25/20 3:40 PM) PT [12.0-14.7 seconds] 13.3 seconds (04/25/20 3:40 PM) PTT [22.9-35.8 seconds] 32.6 seconds (04/25/20 3:40 PM) Coronavirus (COVID-19) ALISHA [Not Detected] Detected 2 *ABN* (04/25/20 3:14 PM) RBC [4.20-5.40 M/CMM] 4.86 M/CMM (04/25/20 3:40 PM) RDW [11.5-14.5 %] 18.0 % *HI* (04/25/20 3:40 PM) S Preg [Negative] Negative *NA* (04/25/20 3:40 PM) Bili Total [0.2-1.3 mg/dL] 0.2 mg/dL (04/25/20 3:40 PM) UA Bacteria [None Seen /HPF] Occasional /HPF *NA* (04/25/20 3:40 PM) UA Bili [Negative] Negative *NA* (04/25/20 3:40 PM) UA Blood [Negative] Small *ABN* (04/25/20 3:40 PM) UA Color [Yellow] Yellow *NA* (04/25/20 3:40 PM) UA Glucose [Negative mg/dL] Negative mg/dL *NA* (04/25/20 3:40 PM) UA Hyal Cast [0-2 /LPF] 9 /LPF *HI* (04/25/20 3:40 PM) UA Ketones [Negative mg/dL] Negative mg/dL *NA* (04/25/20 3:40 PM) UA Leuk Est [Negative] Trace *ABN* (04/25/20 3:40 PM) UA Mucus [None Seen /LPF] Few /LPF *NA* (04/25/20 3:40 PM) UA Nitrite [Negative] Positive *ABN* (04/25/20 3:40 PM) UA pH [5.0-8.0] 5.0 (04/25/20 3:40 PM) UA Protein [Negative mg/dL] 30 mg/dL *ABN* (04/25/20 3:40 PM) UA RBC [0-2 /HPF] 2 /HPF (04/25/20 3:40 PM) UA Spec Grav [<=1.030] 1.019 (04/25/20 3:40 PM) UA Sq Epi [Few /LPF] Moderate /LPF *ABN* (04/25/20 3:40 PM) UA Turbidity [Clear] Slight *ABN* (04/25/20 3:40 PM) UA Urobilinogen [0.1-1.0 mg/dL] <=1.0 mg/dL *NA* (04/25/20 3:40 PM) UA WBC [0-5 /HPF] 26 /HPF *HI* (04/25/20 3:40 PM) WBC [3.7-10.4 K/CMM] 4.2 K/CMM (04/25/20 3:40 PM) 1Result Comment: The eGFR is calculated using the CKD-EPI formula. In most young, healthy individualsthe eGFR will be >90 mL/min/1.73m2. The eGFR declines with age. An eGFR of 60-89 may be normal insome populations, particularly the elderly, for whom the CKD-EPI formula has not been extensively validated. Use of the eGFR is not recommended in the following populations: Individuals with unstable creatinine concentrations, including patients and those with serious co-morbid conditions. Patients with extremes in muscle mass or diet. The data above are obtained from the National Kidney Disease Education Program (NKDEP) which additionally recommends that when the eGFR is used in patients with extremes of body mass index for purposesof drug dosing, the eGFR should be multiplied by the estimated BMI.2Result Comment: "Significant Findings called to KEN Rubio at 04/28/2020 10:24_ by WF_. Read Back OK." Immunizations No data available for this section Procedures Procedure Date Related Diagnosis Body Site Status Bariatric operative procedure Completed Social History Social History Type Response Alcohol Current1 Smoking Status Never smoker; Exposure to To bacco Smoke None; Cigarette Smoking Last 365 Days No; Reg Smoking Cessation Counseling No entered on: 04/25/20 1ocassional Assessment and Plan No data available for this section
--- OUTSIDE RECORDS SUMMARY | 2020-06-08 02:51 | XMS REPORT | Summary of Care ---
:[address] [facility] Address [address] [place], [place] [address]- Encounter HQ Donal(FIN) [id number] Date(s): 04/30/20 [facility] [address] [place] [address]- Attending Physician: Pablo Morrison MD Referring Physician: [...]
--- OUTSIDE RECORDS SUMMARY | 2020-06-08 02:51 | XMS REPORT | Continuity of Care Document ---
:1990 Author Organization [facility] Care Team Providers Name Role Phone [facility] Unavailable Un available Problems Problem Status Onset Classification Date Comments Sourc e Date Reported UNK Active [facility] [facility] 0 Gallbladder Active Problem 05/05/2020 [facility] calculus (disorder) Medications Medication Details Route Status Patient Ordering Order Source Instructions Provider Date Acetaminophen 650 mg = 2 Active 325 MG Oral tab, PO, 020 [facility] Tablet [Tylenol] Q4H, PRN Pain, # 120 tab, 0 Refill(s) Allergies, Adverse Reactions, Alerts No Known Medication Allergies Immunizations No Data Provided for This Section Results Order Name Results Value Reference Date Interpretation Comments [place] BLOOD BANK ABO/Rh O POS 04/25 RESULTS /2019 [facility] [place] BLOOD BANK Antibody Negative 04/25 RESULTS Scrn (04/25/20 3:40 PM) /2019 [facility] ast CHEM PANEL Bili Direct <0.1 0.0 - 0.3 04/25 [facility] [place] CHEM PANEL Glucose Lvl 94 70 - 99 04/25 [facility] [place] CHEM PANEL BUN 8 7 - 22 04/25 [facility] [place] CHEM PANEL Creatinine 0.82 0.50 - 04/25 Lvl 1.40 [facility] [place] CHEM PANEL Sodium Lvl 141 135 - 145 04/25 [facility] [place] CHEM PANEL Potassium 4.7 3.5 - 5.1 04/25 [facility] CHEM PANEL Chloride Lvl 107 95 - 109 04/25 [facility] CHEM PANEL CO2 28 24 - 32 04/25 [facility] [place] CHEM PANEL Calcium Lvl 8.8 8.5 - 10.5 04/25 [facility] CHEM PANEL Total 7.8 6.4 - 8.4 04/25 Protein [facility] [place] CHEM PANEL Albumin Lvl 3.7 3.5 - 5.0 04/25 [facility] CHEM PANEL ALT 36 0 - 65 04/25 [facility] CHEM PANEL AST 25 0 - 37 04/25 [facility] CHEM PANEL Alk Phos 91 39 - 136 04/25 [facility] [place] CHEM PANEL Bili Total 0.2 0.2 - 1.3 04/25 [facility] [place] CHEM PANEL AGAP 10.7 10.0 - 04/25 MH 20.0 [facility] [place] CHEM PANEL B/C Ratio 10 6 - 25 04/25 [facility] [place] CHEM PANEL Globulin 4.1 2.7 - 4.2 04/25 [facility] [place] CHEM PANEL A/G Ratio 0.9 0.7 - 1.6 04/25 [facility] [place] CHEM PANEL eGFR 98 04/25 Result Comment: The [facility] [place] eGFR is calculated using the CKD-EPI formula. In most young, healthy individuals the eGFR will be >90 mL/min/1.73m2 . The eGFR declines with age. An eGFR of 60-89 may be normal in some populations, particularly the elderly, for whom the CKD-EPI formula has not been extensively validated. Use of the eGFR is not recommended in the following populations:< br/>
Anais viduals with unstable creatinine concentration s, including patients and those with serious co-morbid conditions.<b r/>
Patie nts with extremes in muscle mass or diet.

The data above are obtained from the National Kidney Disease Education Program (NKDEP) which additionally recommends that when the eGFR is used in patients with extremes of body mass index for purposes of drug dosing, the eGFR should be multiplied by the estimated BMI. ENDOCRINOL S Preg Negative Negative 04/25 OGY *NA* /2019 [facility] (04/25/20 3:40 PM) HEMATOLOGY Segs 61.5 45.0 - 04/25 MH 75.0 [facility] [place] HEMATOLOGY Lymphocytes 28.4 20.0 - 04/25 MH 40.0 [facility] [place] HEMATOLOGY Monocytes 9.2 2.0 - 12.0 04/25 [facility] [place] HEMATOLOGY Eosinophils 0.6 0.0 - 4.0 04/25 [facility] [place] HEMATOLOGY Basophils 0.3 0.0 - 1.0 04/25 [facility] [place] HEMATOLOGY Neutrophils 2.6 1.5 - 8.1 04/25 MH # /2020 [facility] [place] HEMATOLOGY Lymphocytes 1.2 1.0 - 5.5 04/25 MH # [facility] [place] HEMATOLOGY Monocytes # 0.4 0.0 - 0.8 04/25 [facility] [place] HEMATOLOGY Microcyte 1+ None Seen 04/25 *ABN* /2019 [facility] [place] (04/25/20 3:40 PM) HEMATOLOGY WBC 4.2 3.7 - 10.4 04/25 [facility] [place] HEMATOLOGY RBC 4.86 4.20 - 04/25 MH 5.40 /2019 [facility] [place] HEMATOLOGY Hgb 11.3 12.0 - 04/25 MH 16.0 /2019 [facility] [place] HEMATOLOGY Hct 35.4 36.0 - 04/25 MH 48.0 /2019 [facility] [place] HEMATOLOGY MCV 72.9 80.0 - 04/25 MH 98.0 [facility] [place] HEMATOLOGY MCH 23.3 27.0 - 04/25 MH 31.0 [facility] [place] HEMATOLOGY MCHC 31.9 32.0 - 04/25 MH 36.0 [facility] [place] HEMATOLOGY RDW 18.0 11.5 - 04/25 MH 14.5 [facility] [place] HEMATOLOGY Platelet 173 133 - 450 04/25 [facility] [place] HEMATOLOGY MPV 10.7 7.4 - 10.4 04/25 [facility] [place] HEMATOLOGY PT 13.3 12.0 - 04/25 MH 14.7 [facility] [place] HEMATOLOGY INR 1.01 0.85 - 04/25 MH 1.17 [facility] [place] HEMATOLOGY PTT 32.6 22.9 - 04/25 MH 35.8 [facility] [place] URINE AND UA Color Yellow Yellow 04/25 STOOL *NA* /2019 [facility] [place] (04/25/20 3:40 PM) URINE AND UA Turbidity Slight Clear 04/25 STO[facility] *ABN* [facility] [place] (04/25/20 3:40 PM) URINE AND UA Spec Grav 1.019 <=1.030 04/25 STOOL [facility] [place] URINE AND UA pH 5.0 5.0 - 8.0 04/25 STOOL [facility] [place] URINE AND UA Protein 30 mg/dL Negative 04/25 [facility] mg/dL [facility] [place] URINE AND UA Glucose Negative Negative 04/25 [facility] mg/dL mg/dL [facility] [place] URINE AND UA Ketones Negative Negative 04/25 [facility] mg/dL mg/dL [facility] [place] URINE AND UA Bili Negative Negative 04/25 [facility] *NA* [facility] [place] [facility] (04/25/20 3:40 PM) URINE AND UA Blood Small Negative 04/25 [facility] *ABN* [facility] [place] (04/25/20 3:40 PM) URINE AND UA Nitrite Positive Negative 04/25 STOOL *ABN* /2019 [facility] [place] (04/25/20 3:40 PM) URINE AND UA Leuk Est Trace Negative 04/25 STO[facility] *ABN* /2019 [facility] [place] (04/25/20 3:40 PM) URINE AND UA Sq Epi Moderate Few /LPF 04/25 [facility] /LPF [facility] [place] URINE AND UA WBC 26 0 - 5 04/25 STOOL [facility] [place] URINE AND UA RBC 2 0 - 2 04/25 STOOL [facility] [place] URINE AND UA Bacteria Occasional None Seen 04/25 [facility] /HPF /HPF /2019 [facility] [place] URINE AND UA Mucus Few /LPF None Seen 04/25 [facility]OOL /LPF [facility] [place] URINE AND UA Hyal Cast 9 0 - 2 04/25 STOOL [facility] [place] URINE AND UA <=1.0 0.1 - 1.0 04/25 [facility] Urobilinogen mg/dL /2019 [facility] [place] IMMUNOLOGY Coronavirus Detected 2 Not 04/25 Result (COVID-19) *ABN* Detected Comment: [facility] (04/25/20 3:14 PM) "Significant Findings called to KEN Rubio at 04/28/2020 10:24_ by WF_. Read Back OK." Pathology Reports No Data Provided for This Section Diagnostic Reports Report Value Date Source Chest 2 views DX PROCEDURE INFORMATION: 04/25/2020 [facility] Exam: XR Chest, 2 Views Exam date and time: 04/25/2020 3:58 PM Age: 29 years old Clinical indication: Screening exam; Pre-operati ve exam; Additional info: Coughing/pre-operative evaluation TECHNIQUE: Imaging protocol: XR of the chest Views: 2 views. PA and Lateral COMPARISON: No relevant prior studies available. FINDINGS: Lungs: No consolidation. Pleural space: No pleural effusion. No pneumotho rax. Heart/Mediastinum: No cardiomegaly. Bones/joints: No acute abnormality. IMPRESSION: No acute cardiopulmonary findings Anand Coburn MD On 04/25/2020 18:27:46; [facility]SMITT [id number] Consultation Notes No Data Provided for This Section Discharge Summaries No Data Provided for This Section History and Physicals No Data Provided for This Section Vital Signs Vital Sign Value Date Comments Source Temperature Oral (F) 98.9 F 04/25/2020 [facility] Heart Rate 74 04/25/2020 [facility] Respitory Rate 20 04/25/2020 [facility] Systolic (mm Hg) 125 04/25/2020 [facility] Height 154.94 cm 04/25/2020 [facility] Weight 86.364 04/25/2020 [facility] BMI Calculated 35.98 04/25/2020 [facility] Encounters Location Location Encounter Encounter Reason Attending ADM DC Stat us Source Details Type Number For Provider Date Date Visit [facility] [id number] Aud[facility] 04/30 04/30 Pedro Morrison /[facility] Procedures Procedure Code Date Perfomer Comments Source Bariatric [id number] [facility] operative procedure Assessment and Plan No Data Provided for This Section Plan of Care No Data Provided for This Section Social History Social History Date Source Social History TypeResponse 04/25/2020 [facility] Alcohol Current1 Smoking Status Never smoker; Exposure to Tobacco Smoke None; Cigarette Smoking Last 365 Days No; Reg Smoking Cessation Counseling No entered on: 04/25/20 1ocassional Family History No Data Provided for This Section Advance Directives No Data Provided for This Section Functional Status No Data Provided for This Section
--- OUTSIDE RECORDS SUMMARY | 2020-06-08 02:51 | XMS REPORT | Summary of Care ---
:1990 Author Organization [facility] Address [address] [place], [place] [address]- Encounter [facility] Donal(FIN) [id number] Date(s): 04/30/20 [facility] [address] [place] [address]- Attending Physician: Pablo Morrison MD Referring Physician: [...]
--- OUTSIDE RECORDS SUMMARY | 2020-06-08 02:53 | XMS REPORT | Continuity of Care Document ---
:1990 Author Organization [facility] t Address [address] [place] [address] Care Team Providers Name Role Phone Tamiko Attending Clinician Payers Payer Name Policy Type Policy Number Effective Date Expiration Date S ource Problems Condition Condition Condition Status Onset Resolution Last Treating Co mments Source Name Details Category Date Date Treatment Clinician Date UNK Diagnosis Active 2020-05-21 Mem oria 04-24 07:48:00 l UNK 00:00: Pedro 00 Active 04/24/2020 [facility] [place] Problem Active 2020-05-05 M emoria r calculus 14:59:46 l (disorder) Bloa Lovee r calculus (disorder) Active Problem 05/05/2020 [facility] Allergies, Adverse Reactions, Alerts Allergy Allergy Status Severity Reaction(s) Onset Inactive Treating Comm ents Source Name Type Date Date Clinician No Known DA Active U 2019-0 [facility] 3[facility]25 Clear s 00:00: [place] 00 [facility] No Known DA Active U 2019-0 [facility] 00 [facility] No Known DA Active U 2019-0 [facility] Allergie 2-26 [facility] 00 [facility] No Known DA Active U [facility] Allergie 4-20 [facility] 00 [facility] Social History Social Habit Start Date Stop Date Quantity Comments Source Social History 2020-04-25 2020-04-25 [facility] Trent olwelloyd 21:00:01 21:00:01 Medications Ordered Filled Start Stop Current Ordering Indication Dosage Frequency Signature Comments Components Source Medication Medication Date Date Medication? Clinician (SIG) Name Name Acetaminoph Yes 650 mg = 2 Memoria en 325 MG -19 tab, PO, l Oral Tablet 21:19: Q4H, PRN He rmann [Tylenol] 00 Pain, # 120 tab, 0 Refill(s) Vital Signs Vital Name Observation Time Observation Value Comments Source Temperature Oral (F) 2020-04-25 20:57:00 98.9 F [facility] Heart Rate 2020-04-25 20:57:00 [facility] Respitory Rate 2020-04-25 20:57:00 Marylu Bergeron Systolic (mm Hg) 2020-04-25 20:57:00 Dustin Vasquez Height 2020-04-25 12:08:00 154.94 cm [facility] Weight 2020-04-25 12:08:00 [facility] BMI Calculated 2020-04-25 12:08:00 Marylu Bergeron Procedures Procedure Date / Time Performed Performing Clinician Katrina alfaro Bariatric operative [facility] procedure Encounters Start End Encounter Admission Attending Care Care Encounter Source Date/Time Date/Time Type Type Clinicians Facility Department ID 2020-04-30 2020-04-30 [facility]patient [facility]TT[facility] [id number] 11:00:00 11:00:00 Audencio 00 2020-04-30 2020-04-30 Outpatient COLLETTE Morrison [facility] [id number] 11:00:00 11:00:00 Audencio 00 2020-04-30 2020-04-30 Outpatient COLLETTE Morrison [id number] 11:00:00 11:00:00 Audencio 00 2020-04-25 2020-04-25 Outpatient COLLETTE JUAN M [id number] [facility] 15:00:00 15:00:00 [facility] Results Test Description Test Time Test Comments Results Result Comments Source URINALYSIS COMPLETE 2020-06-02 12:14:00 Test Item Value Reference Range Interpretation Comme nts UA COLOR (test code = COLU) [place] YELLOW UA APPEARANCE (test code = APPU) CLOUDY CLEAR A UA GLUCOSE DIPSTICK (test code = DGLUU) NEGATIVE mg/dL NEGATIVE UA BILIRUBIN DIPSTICK (test code = BILU) NEGATIVE NEGATIVE UA KETONE DIPSTICK (test code = KETU) NEGATIVE mg/dL NEGATIVE UA SPECIFIC GRAVITY (test code = SGU) 1.025 1.001-1.035 UA BLOOD DIPSTICK (test code = VIANCA) NEGATIVE NEGATIVE UA PH DIPSTICK (test code = EMILY) 6.0 5.0-8.0 UA PROTEIN DIPSTICK (test code = PROU) NEGATIVE mg/dL Neg-15 UA UROBILINIOGEN DIPSTICK (test code = URO) 0.2 mg/dL 0.0-0.2 UA NITRITE DIPSTICK (test code = YUN) NEGATIVE NEGATIVE UA LEUKOCYTE ESTERASE W REFLEX (test code = LEUUR) NEGATIVE NEG ATIVE UA WBC (test code = WBCU) 6-10 per HPF 0-5 A UA RBC (test code = RBCU) 0-2 #/HPF 0-5 UA EPITHELIAL CELLS (test code = EPIU) FEW per HPF FEW UA BACTERIA (test code = BACU) FEW #/HPF NONE A UA HYALINE CAST (test code = HYALU) 0-2 #/LPF 0-5 UA MUCUS (test code = MUCU) MANY #/LPF FEW A Urine Source? Clean CatchURINALYSIS [id number] 12:13:00 Test Item Value Reference Range Interpretation Comments UA COLOR (test code = COLU) [place] YELLOW UA APPEARANCE (test code = APPU) CLOUDY CLEAR A UA BILIRUBIN DIPSTICK (test code NEGATIVE = BILU) UA SPECIFIC GRAVITY (test code = 1.001-1.035 SGU) UA PH DIPSTICK (test code = EMILY) 5.0-8.0 UA UROBILINIOGEN DIPSTICK (test mg/dL 0.0-0.2 code = URO) UA NITRITE DIPSTICK (test code = NEGATIVE YUN) UA LEUKOCYTE ESTERASE W REFLEX NEGATIVE (test code = LEUUR) UA WBC (test code = WBCU) 6-10 per HPF 0-5 A UA RBC (test code = RBCU) 0-2 #/HPF 0-5 UA EPITHELIAL CELLS (test code = FEW per HPF FEW EPIU) UA BACTERIA (test code = BACU) FEW #/HPF NONE A UA HYALINE CAST (test code = 0-2 #/LPF 0-5 HYALU) UA MUCUS (test code = MUCU) MANY #/LPF FEW A Urine Source? Clean CatchURINALYSIS [id number] 12:08:00 Test Item Value Reference Range Interpretation Comments UA COLOR (test code = COLU) YELLOW UA APPEARANCE (test code = APPU) CLEAR UA BILIRUBIN DIPSTICK (test code NEGATIVE = BILU) UA SPECIFIC GRAVITY (test code = 1.001-1.035 SGU) UA PH DIPSTICK (test code = EMILY) 5.0-8.0 UA UROBILINIOGEN DIPSTICK (test mg/dL 0.0-0.2 code = URO) UA NITRITE DIPSTICK (test code = NEGATIVE YUN) UA LEUKOCYTE ESTERASE W REFLEX NEGATIVE (test code = LEUUR) UA WBC (test code = WBCU) 6-10 per HPF 0-5 A UA RBC (test code = RBCU) 0-2 #/HPF 0-5 UA EPITHELIAL CELLS (test code = FEW per HPF FEW EPIU) UA BACTERIA (test code = BACU) FEW #/HPF NONE A UA HYALINE CAST (test code = 0-2 #/LPF 0-5 HYALU) UA MUCUS (test code = MUCU) MANY #/LPF FEW A Urine Source? Clean CatchCOMPREHENSIVE METABOLIC [id number] 11:47:00 Test Item Value Reference Range Interpretation Comments SODIUM (test code = 139 mmol/L 136-145 N NA) POTASSIUM (test code = 4.1 mmol/L 3.5-5.1 N K) CHLORIDE (test code = 106.0 mmol/L 98-107 N CL) CARBON DIOXIDE (test 29.0 mmol/L 21-32 N code = CO2) ANION GAP (test code = 8.1 10-20 L GAP) GLUCOSE (test code = 95 mg/dL 74-106 N GLU) BLOOD UREA NITROGEN 12 mg/dL 7-18 N (test code = BUN) GLOMERULAR FILTRATION > 60 mL/min >=60 Estima nury GFR by RATE (test code = GFR) using Modified MDRD formula.Chronic kidney disease is defined as eith er kidney damageor GFR <60 mL/min/1.73 m2 for >3 months. CREATININE (test code 0.80 mg/dL 0.55-1.02 N Note change in = CREAT) reference range due to change in reagent. BUN/CREATININE RATIO 15.9 10-20 N (test code = BUN/CREA) TOTAL PROTEIN (test 8.0 gram/dL 6.4-8.2 N code = PROT) ALBUMIN (test code = 3.5 g/dL 3.4-5.0 N ALB) GLOBULIN (test code = 4.5 gram/dL 2.7-4.2 H GLOB) ALBUMIN/GLOBULIN RATIO 0.8 0.75-1.50 N (test code = A/G) CALCIUM (test code = 9.3 mg/dL 8.5-10.1 N CA) BILIRUBIN TOTAL (test 0.50 mg/dL 0.0-1.0 N code = BILT) SGOT/AST (test code = 22 IUnit/L 15-37 N AST) SGPT/ALT (test code = 29 IUnit/L 12-78 N ALT) ALKALINE PHOSPHATASE 99 IUnit/L 45-117 N Note change in TOTAL (test code = reference range due ALKP) to change in reagent. BILIRUBIN [id number] 11:47:00 Test Item Value Reference Range Interpretation Comments BILIRUBIN DIRECT (test code = 0.13 mg/dL 0.0-0.20 N BILD) COMPREHENSIVE METABOLIC [id number] 11:35:00 Test Item Value Reference Range Interpretation Comments SODIUM (test code = NA) 139 mmol/L 136-145 N POTASSIUM (test code = K) 4.1 mmol/L 3.5-5.1 N CHLORIDE (test code = CL) 106.0 mmol/L 98-107 N CARBON DIOXIDE (test code = CO2) mmol/L 21-32 ANION GAP (test code = GAP) 10-20 GLUCOSE (test code = GLU) mg/dL 74-106 BLOOD UREA NITROGEN (test code = mg/dL 7-18 BUN) GLOMERULAR FILTRATION RATE (test mL/min >=60 code = GFR) CREATININE (test code = CREAT) mg/dL 0.55-1.02 BUN/CREATININE RATIO (test code 10-20 = BUN/CREA) TOTAL PROTEIN (test code = PROT) gram/dL 6.4-8.2 ALBUMIN (test code = ALB) g/dL 3.4-5.0 GLOBULIN (test code = GLOB) gram/dL 2.7-4.2 ALBUMIN/GLOBULIN RATIO (test 0.75-1.50 code = A/G) CALCIUM (test code = CA) mg/dL 8.5-10.1 BILIRUBIN TOTAL (test code = mg/dL 0.0-1.0 BILT) SGOT/AST (test code = AST) IUnit/L 15-37 SGPT/ALT (test code = ALT) IUnit/L 12-78 ALKALINE PHOSPHATASE TOTAL (test IUnit/L 45-117 code = ALKP) BILIRUBIN [id number] 11:35:00 Test Item Value Reference Range Interpretation Comments BILIRUBIN DIRECT (test code = BILD) mg/dL 0.0-0.20 HCG SERUM [id number] 11:34:00 Test Item Value Reference Range Interpretation Comments HCG SERUM QUAL (test NEGATIVE NEGATIVE This HC GQL test is NOT code = HCGQL) applicable for MALE patients.Check with nurse about probable order error.If Tumor Marker Test needed, nu rse should order test "HCG TU"(Test #[id number])---- - COVID 19 Asymptomatic IH [id number] 11:33:00 Test Item Value Reference Range Interpretation Comments COVID 19 Asymptomatic IH AG (test NEGATIVE code = COVNONPUIAG) CBC W/AUTO [id number] 11:28:00 Test Item Value Reference Range Interpretation Comments WHITE BLOOD CELL (test 6.2 K/mm3 4.5-12.5 N code = WBC) RED BLOOD CELL (test code 4.80 mill/mm3 3.7-5.2 N = RBC) HEMOGLOBIN (test code = 10.8 gram/dL 11.5-15.5 L HGB) HEMATOCRIT (test code = 35.6 % 36.0-46.0 L HCT) MEAN CELL VOLUME (test 74.2 fL 80-98 L code = MCV) MEAN CELL HGB (test code 22.5 picogram 27.0-33.0 L = MCH) MEAN CELL HGB 30.3 gram/dL 33.0-36.0 L CONCETRATION (test code = MCHC) RED CELL DISTRIBUTION 16.6 % 11.6-16.2 H WIDTH (test code = RDW) RED CELL DISTRIBUTION 43.8 fL 37.0-51.0 N WIDTH SD (test code = RDW-SD) PLATELET COUNT (test code 269 K/mm3 150-450 N = PLT) NEUTROPHIL % (test code = 51.7 % 39.0-69.0 N NT%) IMMATURE GRANULOCYTE % 0.2 % 0.0-5.0 N (test code = IG%) LYMPHOCYTE % (test code = 34.9 % 25.0-55.0 N LY%) MONOCYTE % (test code = 7.9 % 0.0-10.0 N MO%) EOSINOPHIL % (test code = 4.5 % 0.0-5.0 N EO%) BASOPHIL % (test code = 0.8 % 0.0-1.0 N BA%) NUCLEATED RBC % (test 0.0 % 0-0 N code = NRBC%) NEUTROPHIL # (test code = 3.20 K/mm3 1.8-7.7 N NT#) IMMATURE GRANULOCYTE # 0.01 x10 3/uL 0-0.03 N (test code = IG#) LYMPHOCYTE # (test code = 2.16 K/mm3 1.0-5.0 N LY#) MONOCYTE # (test code = 0.49 K/mm3 0-0.8 N MO#) EOSINOPHIL # (test code = 0.28 K/mm3 0.0-0.5 N EO#) BASOPHIL # (test code = 0.05 K/mm3 0.0-0.2 N BA#) NUCLEATED RBC # (test 0.00 K/mm3 0.0-0.1 N code = NRBC#) MANUAL DIFF REQUIRED NO, ONLY SCAN NEEDED (test code = MDIFF) DIFFERENTIAL [id number] 11:28:00 Test Item Value Reference Range Interpretation Comments STAIN ACCEPTABILITY (test STAIN ACCEPTABLE code = STN ACCEPTABLE) HYPOCHROMIA (test code = 1+ HYPO) POIKILOCYTOSIS (test code = 1+ POIK) ANISOCYTOSIS (test code = 1+ ANISO) PLATELET ESTIMATE (test code ADEQUATE = PLTEST) PLATELET MORPHOLOGY (test NORMAL code = PLTMORPH) PROTHROMBIN [id number] 11:10:00 Test Item Value Reference Range Interpretation Comments PROTHROMBIN TIME 12.3 seconds 9.0-14.0 N PATIENT (test code = PTP) INTERNATIONAL NORMAL 1.1 0.8-1.2 N The the rapeutic range RATIO (test code = for oral INR) anticoagulant t herapy formost indicat ions is an internati onal normalized rati o (INR)of between 2.0 and 3.0. The recommended therapeutic INR range for various cli nical situations is l isted below: Clinical Situat ion INR range Pulmonary embol ism treatment (2.0-3.0)Venou s thrombosis treatmentVenous thrombosis prophylaxis (hi gh risk surgery)Prevent ion of systemic emboli sm from: A cute myocardial infa rction Valvula r heart disease Atrial fibrilla tion Mechanical pros thetic heart valves (2.5-3.5) IS PATIENT ON ANTICOAGULANTS? NTHROMBOPLASTIN TIME [id number] 11:10:00 Test Item Value Reference Range Interpretation Comments THROMBOPLASTIN TIME PARTIAL 31.4 seconds 23.0-37.0 N (test code = PTT) IS PATIENT ON ANTICOAGULANTS? NCBC W/AUTO [id number] 11:03:00 Test Item Value Reference Range Interpretation Comments WHITE BLOOD CELL (test 6.2 K/mm3 4.5-12.5 N code = WBC) RED BLOOD CELL (test code 4.80 mill/mm3 3.7-5.2 N = RBC) HEMOGLOBIN (test code = 10.8 gram/dL 11.5-15.5 L HGB) HEMATOCRIT (test code = 35.6 % 36.0-46.0 L HCT) MEAN CELL VOLUME (test 74.2 fL 80-98 L code = MCV) MEAN CELL HGB (test code 22.5 picogram 27.0-33.0 L = MCH) MEAN CELL HGB 30.3 gram/dL 33.0-36.0 L CONCETRATION (test code = MCHC) RED CELL DISTRIBUTION 16.6 % 11.6-16.2 H WIDTH (test code = RDW) RED CELL DISTRIBUTION 43.8 fL 37.0-51.0 N WIDTH SD (test code = RDW-SD) PLATELET COUNT (test code 269 K/mm3 150-450 N = PLT) NEUTROPHIL % (test code = 51.7 % 39.0-69.0 N NT%) IMMATURE GRANULOCYTE % 0.2 % 0.0-5.0 N (test code = IG%) LYMPHOCYTE % (test code = 34.9 % 25.0-55.0 N LY%) MONOCYTE % (test code = 7.9 % 0.0-10.0 N MO%) EOSINOPHIL % (test code = 4.5 % 0.0-5.0 N EO%) BASOPHIL % (test code = 0.8 % 0.0-1.0 N BA%) NUCLEATED RBC % (test 0.0 % 0-0 N code = NRBC%) NEUTROPHIL # (test code = 3.20 K/mm3 1.8-7.7 N NT#) IMMATURE GRANULOCYTE # 0.01 x10 3/uL 0-0.03 N (test code = IG#) LYMPHOCYTE # (test code = 2.16 K/mm3 1.0-5.0 N LY#) MONOCYTE # (test code = 0.49 K/mm3 0-0.8 N MO#) EOSINOPHIL # (test code = 0.28 K/mm3 0.0-0.5 N EO#) BASOPHIL # (test code = 0.05 K/mm3 0.0-0.2 N BA#) NUCLEATED RBC # (test 0.00 K/mm3 0.0-0.1 N code = NRBC#) MANUAL DIFF REQUIRED NO, ONLY SCAN NEEDED (test code = MDIFF) DIFFERENTIAL [id number] 11:03:00 Test Item Value Reference Range Interpretation Comments STAIN ACCEPTABILITY (test code = STN ACCEPTABLE) CABOT RINGS (test code = CAB) MORPHOLOGY COMMENT (test code = MOC) PLATELET ESTIMATE (test code = PLTEST) PLATELET MORPHOLOGY (test code = PLTMORPH) CBC W/AUTO [id number] 11:03:00 Test Item Value Reference Range Interpretation Comments WHITE BLOOD CELL (test 6.2 K/mm3 4.5-12.5 N code = WBC) RED BLOOD CELL (test code 4.80 mill/mm3 3.7-5.2 N = RBC) HEMOGLOBIN (test code = 10.8 gram/dL 11.5-15.5 L HGB) HEMATOCRIT (test code = 35.6 % 36.0-46.0 L HCT) MEAN CELL VOLUME (test 74.2 fL 80-98 L code = MCV) MEAN CELL HGB (test code 22.5 picogram 27.0-33.0 L = MCH) MEAN CELL HGB 30.3 gram/dL 33.0-36.0 L CONCETRATION (test code = MCHC) RED CELL DISTRIBUTION 16.6 % 11.6-16.2 H WIDTH (test code = RDW) RED CELL DISTRIBUTION 43.8 fL 37.0-51.0 N WIDTH SD (test code = RDW-SD) PLATELET COUNT (test code 269 K/mm3 150-450 N = PLT) NEUTROPHIL % (test code = 51.7 % 39.0-69.0 N NT%) IMMATURE GRANULOCYTE % 0.2 % 0.0-5.0 N (test code = IG%) LYMPHOCYTE % (test code = 34.9 % 25.0-55.0 N LY%) MONOCYTE % (test code = 7.9 % 0.0-10.0 N MO%) EOSINOPHIL % (test code = 4.5 % 0.0-5.0 N EO%) BASOPHIL % (test code = 0.8 % 0.0-1.0 N BA%) NUCLEATED RBC % (test 0.0 % 0-0 N code = NRBC%) NEUTROPHIL # (test code = 3.20 K/mm3 1.8-7.7 N NT#) IMMATURE GRANULOCYTE # 0.01 x10 3/uL 0-0.03 N (test code = IG#) LYMPHOCYTE # (test code = 2.16 K/mm3 1.0-5.0 N LY#) MONOCYTE # (test code = 0.49 K/mm3 0-0.8 N MO#) EOSINOPHIL # (test code = 0.28 K/mm3 0.0-0.5 N EO#) BASOPHIL # (test code = 0.05 K/mm3 0.0-0.2 N BA#) NUCLEATED RBC # (test 0.00 K/mm3 0.0-0.1 N code = NRBC#) MANUAL DIFF REQUIRED NO, ONLY SCAN NEEDED (test code = MDIFF) DIFFERENTIAL [id number] 11:03:00 Test Item Value Reference Range Interpretation Comments STAIN ACCEPTABILITY (test code = STN ACCEPTABLE) CABOT RINGS (test code = CAB) MORPHOLOGY COMMENT (test code = MOC) PLATELET ESTIMATE (test code = PLTEST) PLATELET MORPHOLOGY (test code = PLTMORPH) CBC W/AUTO [id number] 11:03:00 Test Item Value Reference Range Interpretation Comments WHITE BLOOD CELL (test 6.2 K/mm3 4.5-12.5 N code = WBC) RED BLOOD CELL (test code 4.80 mill/mm3 3.7-5.2 N = RBC) HEMOGLOBIN (test code = 10.8 gram/dL 11.5-15.5 L HGB) HEMATOCRIT (test code = 35.6 % 36.0-46.0 L HCT) MEAN CELL VOLUME (test 74.2 fL 80-98 L code = MCV) MEAN CELL HGB (test code 22.5 picogram 27.0-33.0 L = MCH) MEAN CELL HGB 30.3 gram/dL 33.0-36.0 L CONCETRATION (test code = MCHC) RED CELL DISTRIBUTION 16.6 % 11.6-16.2 H WIDTH (test code = RDW) RED CELL DISTRIBUTION 43.8 fL 37.0-51.0 N WIDTH SD (test code = RDW-SD) PLATELET COUNT (test code 269 K/mm3 150-450 N = PLT) NEUTROPHIL % (test code = 51.7 % 39.0-69.0 N NT%) IMMATURE GRANULOCYTE % 0.2 % 0.0-5.0 N (test code = IG%) LYMPHOCYTE % (test code = 34.9 % 25.0-55.0 N LY%) MONOCYTE % (test code = 7.9 % 0.0-10.0 N MO%) EOSINOPHIL % (test code = 4.5 % 0.0-5.0 N EO%) BASOPHIL % (test code = 0.8 % 0.0-1.0 N BA%) NUCLEATED RBC % (test 0.0 % 0-0 N code = NRBC%) NEUTROPHIL # (test code = 3.20 K/mm3 1.8-7.7 N NT#) IMMATURE GRANULOCYTE # 0.01 x10 3/uL 0-0.03 N (test code = IG#) LYMPHOCYTE # (test code = 2.16 K/mm3 1.0-5.0 N LY#) MONOCYTE # (test code = 0.49 K/mm3 0-0.8 N MO#) EOSINOPHIL # (test code = 0.28 K/mm3 0.0-0.5 N EO#) BASOPHIL # (test code = 0.05 K/mm3 0.0-0.2 N BA#) NUCLEATED RBC # (test 0.00 K/mm3 0.0-0.1 N code = NRBC#) MANUAL DIFF REQUIRED NO, ONLY SCAN NEEDED (test code = MDIFF) DIFFERENTIAL [id number] 11:03:00 Test Item Value Reference Range Interpretation Comments STAIN ACCEPTABILITY (test code = STN ACCEPTABLE) MORPHOLOGY COMMENT (test code = MOC) PLATELET ESTIMATE (test code = PLTEST) PLATELET MORPHOLOGY (test code = PLTMORPH) CBC W/AUTO [id number] 11:03:00 Test Item Value Reference Range Interpretation Comments WHITE BLOOD CELL (test 6.2 K/mm3 4.5-12.5 N code = WBC) RED BLOOD CELL (test code 4.80 mill/mm3 3.7-5.2 N = RBC) HEMOGLOBIN (test code = 10.8 gram/dL 11.5-15.5 L HGB) HEMATOCRIT (test code = 35.6 % 36.0-46.0 L HCT) MEAN CELL VOLUME (test 74.2 fL 80-98 L code = MCV) MEAN CELL HGB (test code 22.5 picogram 27.0-33.0 L = MCH) MEAN CELL HGB 30.3 gram/dL 33.0-36.0 L CONCETRATION (test code = MCHC) RED CELL DISTRIBUTION 16.6 % 11.6-16.2 H WIDTH (test code = RDW) RED CELL DISTRIBUTION 43.8 fL 37.0-51.0 N WIDTH SD (test code = RDW-SD) PLATELET COUNT (test code 269 K/mm3 150-450 N = PLT) NEUTROPHIL % (test code = 51.7 % 39.0-69.0 N NT%) IMMATURE GRANULOCYTE % 0.2 % 0.0-5.0 N (test code = IG%) LYMPHOCYTE % (test code = 34.9 % 25.0-55.0 N LY%) MONOCYTE % (test code = 7.9 % 0.0-10.0 N MO%) EOSINOPHIL % (test code = 4.5 % 0.0-5.0 N EO%) BASOPHIL % (test code = 0.8 % 0.0-1.0 N BA%) NUCLEATED RBC % (test 0.0 % 0-0 N code = NRBC%) NEUTROPHIL # (test code = 3.20 K/mm3 1.8-7.7 N NT#) IMMATURE GRANULOCYTE # 0.01 x10 3/uL 0-0.03 N (test code = IG#) LYMPHOCYTE # (test code = 2.16 K/mm3 1.0-5.0 N LY#) MONOCYTE # (test code = 0.49 K/mm3 0-0.8 N MO#) EOSINOPHIL # (test code = 0.28 K/mm3 0.0-0.5 N EO#) BASOPHIL # (test code = 0.05 K/mm3 0.0-0.2 N BA#) NUCLEATED RBC # (test 0.00 K/mm3 0.0-0.1 N code = NRBC#) MANUAL DIFF REQUIRED NO, ONLY SCAN NEEDED (test code = MDIFF) DIFFERENTIAL [id number] 11:03:00 Test Item Value Reference Range Interpretation Comments STAIN ACCEPTABILITY (test code = STN ACCEPTABLE) CABOT RINGS (test code = CAB) MORPHOLOGY COMMENT (test code = MOC) PLATELET ESTIMATE (test code = PLTEST) PLATELET MORPHOLOGY (test code = PLTMORPH) - XR CHEST 2 [id number] 09:53:00 FAX: Pablo Rich MD [phone] [place]: O St: PRE Name: JOHANNA HERNANDEZ [facility] : 1990 Age/S: 29/F Sarkis Smalls Unit#: [id number] Loc: [place] [address] Phys: Pablo Morrison MD Acct: [id number] Dis Date: Status: PRE SDC PHONE #: [phone] Exam Date: 06/02/2020 09 FAX #: [phone] Reason: PRE OP EXAMS: CPT CODE: [id number] XR CHEST 2 V [id number] REASON FOR EXAM: PRE OP Exam Order Date:06/02/2020 8:57 AM Ordering M.D.: Pablo Morrison MD PROCEDURE: - XR CHEST 2 V COMPARISON: Chest x-ray February 24, 2017 FINDINGS: The lungs are clear. There is no pleural effusion or pneumothorax. Pulmonary vascularity is within normal limits. Cardiomediastinal silhouette is normal in size for technique. The medi astinal contours are within normal limits. Musculoskeletal structures are within normal limits. Surgical clips are present in the left upper abdomen.IMPRESSION: No acute cardiopulmonary process. Location: [facility] at 0953 Reported and signed by: Yousuf Gill MD CC: Pablo Morrison MD Technologist: RT Liliana(Comfort) Trnscrd Date/Time/By: 06/02/2020 (0953) : By: [email or web address] Orig Print D/T: S: 06/02/2020 (0956) PAGE 1 Signed ReportBLOOD BANK [id number] 20:40:00 Negative (04/25/20 3:40 PM)[facility] [id number] 20:40:00<0.1 [facility] [id number] 20:40:0094[facility] PANEL 2020-04-25 20:40:008[facility] [id number] 20:40:000.82[facility] [id number] 20:40:11590Slpncdog HermannCHEM [id number] 20:40:004.7[facility]annCHEM SAUUL2397-34-51 20:40:71011Xlqqyasj HermannCHEM WFXIC6130-18-08 20:40:0028[facility]CHE[facility] WMHOM7533-71-68 20:40:008.8 [facility] YNGZU0182-38-88 20:40:007.8[facility]annCHEM PANEL 2020-04-25 20:40:003.7[facility]CHE[facility] WGPVM9970-95-93 20:40:0036[facility]CHE[facility] XPTAE1569-33-87 20:40:0025[facility]CHE[facility] KKNBP8484-62-42 20:40:0091[facility]CHE[facility] DOYKX7998-36-50 20:40:000.2[facility]CHE[facility] PZLKT4031-36-16 20:40:0010.7[facility]CHE[facility] EQGOC1324-53-23 20:40:00 Test Item Value Reference Range Interpretation Comments B/C Ratio (test code = B/C Ratio) 10 1 6-25 [facility] NONOS5627-95-21 20:40:004.1[facility]CHE[facility] PANEL 2020-04-25 20:40:00 Test Item Value Reference Range Interpretation Comments A/G Ratio (test code = A/G Ratio) 0.9 1 0.7-1.6 [facility] BAEPC0293-03-49 20:40:0098[facility]annENDOCRINOLOGY 2020-04-25 20:40:00Negative *NA*(04/25/20 3:40 PM)[facility]annHEMATOLOGY 2020-04-25 20:40:0061.5[facility] VyidecqDPDHVMJSSH1988-20-36 20:40:0028.4[facility] ObzamqyYXLUBMMJHO4130-69-05 20:40:009.2[facility] MpjfifsDYFNXHIZYZ8835-63-24 20:40:000.6[facility] CpbpzjaWWXLKAPDIB0613-23-58 20:40:000.3[facility] PJPWQBKPEK7641-55-94 20:40:002.6[facility] ExoblteMXTZFKJAML4710-26-49 20:40:001.2 [facility] MwzpgbmOXIPXBNMSU7504-76-85 20:40:000.4[facility]annHEMATOLOGY 2020-04-25 20:40:001+ *ABN*(04/25/20 3:40 PM)[facility] QajrxcjEQFPWOEQXL9224-34-73 20:40:004.2[facility] WzfnaeoAIIIIONLGP3768-05-51 20:40:004.86[facility] [employer] STNLEBTXHR8181-30-22 20:40:0011.3[facility] BwzbsxjDKTSFAWNXY2975-43-60 20:40:00 35.4[facility] YugcuspMZKWWRNSDL2250-65-15 20:40:0072.9[facility]annHEMATOLOGY 2020-04-25 20:40:00 Test Item Value Reference Range Interpretation Comments MCH (test code = MCH) 23.3 pg 27.0-31.0 [facility] IslfnjxUTSCPDYUAN2315-00-86 20:40:0031.9[facility]annHEMATOLOGY 2020-04-25 20:40:0018.0[facility] LfhauxvLUDREGRFPU5365-72-64 20:40:76898Pbptkxnk JkkqcujBEWSDTUGMJ7174-59-57 20:40:0010.7[facility] InkjdfrGNVMHXFQKE3497-91-55 20:40:00 Test Item Value Reference Range Interpretation Comments PT (test code = PT) 13.3 s 12.0-14.7 [facility] IanmlelXRPJKALIVJ1533-86-85 20:40:00 Test Item Value Reference Range Interpretation Comments INR (test code = INR) 1.01 1 0.85-1.17 [facility] VqlnlsbVQSTPWZAAD7888-84-24 20:40:00 Test Item Value Reference Range Interpretation Comments PTT (test code = PTT) 32.6 s 22.9-35.8 [facility] UCIWW1868-88-08 20:40:00Yellow *NA*(04/25/20 3:40 PM) [facility] AIKJU5839-35-27 20:40:00Slight *ABN*(04/25/20 3:40 PM) [facility] PLAAS0205-02-46 20:40:00 Test Item Value Reference Range Interpretation Comments UA Spec Grav (test code = UA Spec 1.019 1 Grav) [facility] RBHXU1427-98-60 20:40:00 Test Item Value Reference Range Interpretation Comments UA pH (test code = UA pH) 5.0 1 5.0-8.0 [facility] SMATV3258-56-28 20:40:00Negative *NA*(04/25/20 3:40 PM) [facility] LKYPE3646-91-38 20:40:00Small *ABN*(04/25/20 3:40 PM) [facility] KZCAD5008-05-62 20:40:00Positive *ABN*(04/25/20 3:40 PM)[facility] GBKOX1664-69-64 20:40:00Trace *ABN*(04/25/20 3:40 PM)[facility] HOVMI4731-07-90 20:40:0026[facility] FBWGR5545-88-33 20:40:002[facility] PNKGY1401-37-38 20:40:009 [facility] BpkgjxcBNSOCACUPL9408-18-06 20:14:00Detected 2*ABN*(04/25/20 3:14 PM) [facility]annFALLOPIAN TUBE,LDSHACRWBONKR3045-74-25 11:40:00 RUN DATE: 02/28/20 [facility] PAGE 1 RUN TIME: 1338 Specimen Inquiry RUN USER: INTERFACE PATIENT: JOHANNA HERNANDEZ LOC: [facility] U #: [id number] AGE/SX: ROOM: 2005 RE02/26/20REG DR: Naomi Saldivar DO : 89 BED: A DIS: 02/28/20 STATUS: DIS IN TLOC: SPEC #: [id number] RECD: 02/26/20-958 STATUS: DANIEL SIMEON #: [id number] RADHA: 02/26/20- SUBM DR: Naomi Saldivar DO ENTERED: 02/27/20-958 SP TYPE: [facility] DR: ORDERED: LEVEL II SURGIC/2 CODES: H26290 - FALLOPIAN TUBE PROCEDURES: LEVEL II SURGIC (Incomplete) TISSUES: FALLOPIAN TUBE, NOS - BILATERAL FALLOPIAN TUBES CLINICAL HISTORY Not provided (wpd) FINAL DIAGNOSIS Right fallopian tube, sterilization salpingectomy: - completely transected unremarkable fallopian tube Left fallopian tube, sterilization salpingectomy: - completely transected unremarkable fallopian tube CPT code(s): 08589 x2 ls/kr GROSS DESCRIPTION ANATOMIC SOURCE OF TISSUE (per Requisition): Left and right fallopiantubes (received in 2 containers) Each specimen is labeled with the patient's name and medical record number. Specimen #1 is designated "right" and consists of a 6 x 0.6 x 0.5 cm segment of odom fallopian tube with fimbria. The entire fimbria and two cross- sections of the tube are submitted in A1. Specimen #2 is designated "left" and consists of a 4 x 0.6 x 0.6 cm segment of odom fallopian tube with fimbria. The entire fimbria and two cross-sections of the tube are submitted in B1. hz/wpd 02/27/20 Signed Brittny Grady MD 02/28/20 1140 END OF REPORT HGB [id number] 06:26:00 Test Item Value Reference Range Interpretation Comments HEMOGLOBIN (test code = 7.7 g/dL 10.7-13.9 L Resu lts verified by HGB) repeat analysis HEMATOCRIT (test code = 25.3 % 32.1-42.1 L Resu lts verified by HCT) repeat analysis [id number] 17:12:00 Test Item Value Reference Range Interpretation Comments GLUBED (test code = GLUBED) 85 mg/dL 65-110 N [id number] 15:31:00 Test Item Value Reference Range Interpretation Comments GLUBED (test code = GLUBED) 103 mg/dL 65-110 N Coronavirus 2019 nCoV [id number] 10:32:00 Test Item Value Reference Range Interpretation Comments Coronavirus 2019 nCoV Negative Negative RESUL TS CALLED TO U Bedside (test code = RNREAD BACK & CONFIRMED? [id number]) JOSE DAVID Hanna 02/26/20 1032 This resul [...] AUTHORIZATION F ROM FDA AG HEPATITIS B [id number] 09:45:00 Test Item Value Reference Range Interpretation Comments AG HEPATITIS B SURFACE (test code NONREACTIVE NONREACTIVE = HBSAG) AB HEPATITIS C [id number] 09:45:00 Test Item Value Reference Range Interpretation Comments AB HEPATITIS C (test code = NONREACTIVE NONREACTIVE HCVAB) SIGNAL TO CUTOFF (test code = 0.14 <0.80 N CUTOFF) AB [id number] 09:45:00 Test Item Value Reference Range Interpretation Comments AB TREPONEMA (test code = TREPAB) NONREACTIVE NONREACTIVE AG HEPATITIS B [id number] 09:13:00 Test Item Value Reference Range Interpretation Comments AG HEPATITIS B SURFACE (test code NONREACTIVE NONREACTIVE = HBSAG) AB HEPATITIS C [id number] 09:13:00 Test Item Value Reference Range Interpretation Comments AB HEPATITIS C (test code = HCVAB) NONREACTIVE SIGNAL TO CUTOFF (test code = CUTOFF) <0.80 AB [id number] 09:13:00 Test Item Value Reference Range Interpretation Comments AB TREPONEMA (test code = TREPAB) NONREACTIVE NONREACTIVE CBC W/AUTO [id number] 08:56:00 Test Item Value Reference Range Interpretation [...] REQUIRED (test code = PLTMR) COMPREHENSIVE METABOLIC [id number] 08:44:00 Test Item Value Reference Range Interpretation [...] 46-116 H code = ALKP) CBC W/AUTO [id number] 08:39:00 Test Item Value Reference Range Interpretation [...]
[2020-06-08] MEDS ORDERED: NA CHLORIDE 0.9% 1,000 ML ONE (03:19)
[2020-06-08] MEDS ORDERED: MORPHINE 4 MG/ML SYR ONE (03:19)
[2020-06-08] MEDS ORDERED: ONDANSETRON 4 MG/2 ML VIAL ONE (03:19)
[2020-06-08 03:22] LABS: Absolute Lymphocytes (CBC) 3.9 K/uL (0.7-4.9); Basophils % 0.5 % (0-1.3); Hematocrit 32.9 % (36.0-45.0); MPV 10.7 fL (7.6-11.3); RBC Red Blood Cell Count 4.67 M/uL (3.86-4.86)
[2020-06-08 03:42] LABS: Albumin 3.7 g/dL (3.4-5.0); Bilirubin Direct 0.1 mg/dL (0-0.2); Bilirubin Total 0.3 mg/dL (0.2-1.0); Potassium 3.3 mmol/L (3.5-5.1); Protein, Total 7.9 g/dL (6.4-8.2)
[2020-06-08] MEDS ORDERED: KETOROLAC 30 MG/ML INJ ONE (04:09)
[2020-06-08] MEDS ORDERED: FENTANYL CITR 100 MCG/2 ML ONE (04:09)
--- NOTE | 2020-06-08 06:04 | ER ---
Nurse's Notes [facility] Name: Tyree Patel Age: 29 yrs Sex: Female : 1990 Arrival Date: 06/08/2020 Time: 02:49 Bed 5 Private MD: Diagnosis: Right upper quadrant abdominal tenderness Presentation: 06/08 03:00 Chief complaint: Patient states: she is having severe back pain radiating to her bb abdomen which started approx 60 mins ago pt states she had a cholecystectomy on Tuesday at [facility] and has had no problems since then until now. Coronavirus screen: At this time, the client does not indicate any symptoms associated with coronavirus-19. Ebola Screen: No symptoms or risks identified at this time. Initial Sepsis Screen: Does the patient meet any 2 criteria? No. Patient's initial sepsis screen is negative. Does the patient have a suspected source of infection? No. Patient's initial sepsis screen is negative. Risk Assessment: Do you want to hurt yourself or someone else? Patient reports no desire to harm self or others. Onset of symptoms was June 08, 2020. 03:00 Method Of Arrival: Ambulatory bb 03:00 Acuity: RAVIN 3 bb Triage Assessment: 03:03 General: Appears uncomfortable, Behavior is agitated, anxious. Pain: Complains of pain bb in back. Musculoskeletal: Circulation, motion, and sensation intact. 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 - Social history:: Smoking status: Patient denies any tobacco usage or history of. Screenin:19 Abuse screen: Denies threats or abuse. Denies injuries from another. Nutritional ao screening: No deficits noted. Tuberculosis screening: No symptoms or risk factors identified. Fall Risk None identified. Assessment: 03:00 General: Appears in no apparent distress. comfortable, Behavior is calm, cooperative, ao appropriate for age. Pain: Complains of pain in back. Neuro: Level of Consciousness is awake, alert, obeys commands, Oriented to person, place, time, situation, Appropriate for age Moves all extremities. Full function Speech is normal, Facial symmetry appears normal. Cardiovascular: Capillary refill < 3 seconds Patient's skin is warm and dry. Respiratory: Airway is patent Respiratory effort is even, unlabored, Respiratory pattern is regular, symmetrical. GI: Abdomen is non-distended. : No signs and/or symptoms were reported regarding the genitourinary system. EENT: No signs and/or symptoms were reported regarding the EENT system. Derm: Skin is intact, Skin is pink, warm \T\ dry. normal. Musculoskeletal: Circulation, motion, and sensation intact. Range of motion: intact in all extremities. 04:30 Reassessment: Patient appears in no apparent distress at this time. Patient and/or ao family updated on plan of care and expected duration. Pain level reassessed. Waiting on Urine sample for CT. 05:00 Reassessment: CT was called because patient is not able to urinate. Patient states that ao her tubes had been taking out and there is no chances she will be . CT will be perform without Urine . 05:53 Reassessment: Patient appears in no apparent distress at this time. Patient and/or ao family updated on plan of care and expected duration. Pain level reassessed. Waiting on urine sample. 06:15 Reassessment: Patient appears in no apparent distress at this time. Received an order ao from Dr Ramirez to medicate patient with tramadol 50mg. Patient is being discharge with tramadol. 06:22 Reassessment: Dc instructions given to patient. patient agree with POC and to follow up ao with PCP. Provide with a prescription. Patient awaiting in room for ride home. Vital Signs: 03:00 BP 130 / 58; Pulse 67; Resp 18 S; Temp 98(O); Pulse Ox 99% on R/A; Weight 83.46 kg (R); bb Height 5 ft. 1 in. (154.94 cm) (R); Pain 10/10; 04:27 BP 127 / 71; Pulse 82; Resp 18; Pulse Ox 98% on R/A; ao 05:50 BP 132 / 71; Pulse 80; Resp 18; Pulse Ox 97% on R/A; ao 03:00 Body Mass Index 34.77 (83.46 kg, 154.94 cm) bb ED Course: 02:49 Patient arrived in ED. cl3 02:55 Ang Freedman RN is Primary Nurse. ao 02:56 Bridger Ramirez MD is Attending Physician. tw4 03:03 Triage completed. bb 03:03 Arm band placed on Patient placed in an exam room, on a stretcher, on pulse oximetry. bb 03:13 Inserted saline lock: 20 gauge in right antecubital area, using aseptic technique. oe Blood collected. 03:19 Patient has correct armband on for positive identification. Pulse ox on. NIBP on. ao 05:07 Abdomen In Process Unspecified. EDMS 06:20 No provider procedures requiring assistance completed. IV discontinued, intact, ao bleeding controlled, No redness/swelling at site. Pressure dressing applied. Administered Medications: 03:16 Drug: NS 0.9% 1000 ml Route: IV; Rate: 1 bolus; Site: right antecubital; ao 06:23 Follow up: IV Status: Completed infusion; IV Intake: 1000ml ao 03:17 Drug: morphine 4 mg Route: IVP; Site: right antecubital; ao 03:44 Follow up: Response: No adverse reaction; Pain is unchanged, physician notified ao 03:17 Drug: Zofran (Ondansetron) 4 mg Route: IVP; Site: right antecubital; ao 03:44 Follow up: Response: No adverse reaction ao 04:04 Drug: fentaNYL (PF) 25 mcg Route: IVP; Site: right forearm; ao 04:42 Follow up: Response: No adverse reaction ao 04:42 Drug: TORadol 30 mg Route: IVP; Site: right antecubital; ao 06:05 Follow up: Response: No adverse reaction; Pain is decreased ao 06:15 Drug: traMADol 50 mg {Note: Rass 0.} Route: PO; ao 06:23 Follow up: Response: No adverse reaction ao Intake: 06:23 IV: 1000ml; Total: 1000ml. ao Outcome: 06:03 Discharge ordered by . tw4 06:20 Discharged to home ambulatory. ao 06:20 Condition: stable 06:20 Discharge instructions given to patient, Instructed on discharge instructions, follow up and referral plans. Demonstrated understanding of instructions, follow-up care, Prescriptions given X 1. 06:51 Patient left the ED. ao Signatures: Dispatcher [facility] SystemDep[facility]ing EDMS Young, Benita, RN Ang Agudelo RN RN ao Espinosa, Orlando oe Wadley, Terrence, MD MD tw4 Brandon Rubi cl3 Corrections: (The following items were deleted from the chart) 05:53 05:50 Reassessment: Patient appears in no apparent distress at this time. Patient ao and/or family updated on plan of care and expected duration. Pain level reassessed. Waiting on urine sample ao 05:53 05:50 Reassessment: Patient appears in no apparent distress at this time. Patient ao and/or family updated on plan of care and expected duration. Pain level reassessed. Waiting on Urine sample for CT. ao 05:53 05:51 Reassessment: CT was called because patient is not able to urinate. Patient ao states that her tubes had been taking out and there is no chances she will be . CT will be perform without Urine . ao
--- NOTE | 2020-06-08 06:05 | EDPHYS ---
Physician Documentation [facility] Name: Tyree Patel Age: 29 yrs Sex: Female : 1990 Arrival Date: 06/08/2020 Time: 02:49 Bed 5 Private MD: ED Physician Bridger Ramirez HPI: 06/08 05:15 This 29 yrs old Female presents to ER via Ambulatory with complaints of Back tw4 Pain. 05:15 The patient presents with pain that is acute. The symptoms are located in the right mid tw4 back. Onset: The symptoms/episode began/occurred just prior to arrival, 1 hour(s) ago. The pain radiates to the right lower quadrant. Associated signs and symptoms: The patient has no apparent associated signs or symptoms. The problem was sustained. Modifying factors: The patient symptoms are alleviated by nothing, the patient symptoms are aggravated by movement. The patient has not experienced similar symptoms in the past. 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 - Social history:: Smoking status: Patient denies any tobacco usage or history of. ROS: 05:15 Constitutional: Negative for fever, chills, and weight loss, Eyes: Negative for injury, tw4 pain, redness, and discharge, Cardiovascular: Negative for chest pain, palpitations, and edema, Respiratory: Negative for shortness of breath, cough, wheezing, and pleuritic chest pain, Abdomen/GI: Negative for abdominal pain, nausea, vomiting, diarrhea, and constipation, MS/Extremity: Negative for injury and deformity, Skin: Negative for injury, rash, and discoloration, Neuro: Negative for headache, weakness, numbness, tingling, and seizure. 05:15 Back: Positive for pain at rest, pain with movement. Exam: 05:15 Constitutional: This is a well developed, well nourished patient who is awake, alert, tw4 and in no acute distress. Head/Face: Normocephalic, atraumatic. Chest/axilla: Normal chest wall appearance and motion. Nontender with no deformity. No lesions are appreciated. Cardiovascular: Regular rate and rhythm with a normal S1 and S2. No gallops, murmurs, or rubs. Normal PMI, no JVD. No pulse deficits. Respiratory: Lungs have equal breath sounds bilaterally, clear to auscultation and percussion. No rales, rhonchi or wheezes noted. No increased work of breathing, no retractions or nasal flaring. Abdomen/GI: Soft, non-tender, with normal bowel sounds. No distension or tympany. No guarding or rebound. No evidence of tenderness throughout. Back: No spinal tenderness. No costovertebral tenderness. Full range of motion. MS/ Extremity: Pulses equal, no cyanosis. Neurovascular intact. Full, normal range of motion. Neuro: Awake and alert, GCS 15, oriented to person, place, time, and situation. Cranial nerves II-XII grossly intact. Motor strength 5/5 in all extremities. Sensory grossly intact. Cerebellar exam normal. Normal gait. Vital Signs: 03:00 BP 130 / 58; Pulse 67; Resp 18 S; Temp 98(O); Pulse Ox 99% on R/A; Weight 83.46 kg (R); bb Height 5 ft. 1 in. (154.94 cm) (R); Pain 10/10; 04:27 BP 127 / 71; Pulse 82; Resp 18; Pulse Ox 98% on R/A; ao 05:50 BP 132 / 71; Pulse 80; Resp 18; Pulse Ox 97% on R/A; ao 03:00 Body Mass Index 34.77 (83.46 kg, 154.94 cm) MDM: 03:54 Patient medically screened. tw4 05:15 Data reviewed: vital signs, nurses notes. 06/08 03:17 Order name: Basic Metabolic Panel; Complete Time: 03:54 EDMS 06/08 03:54 Interpretation: Normal except: K 3.3; GLUC 113; GFR 81. 06/08 03:17 Order name: Liver (Hepatic) Function; Complete Time: 03:54 EDMS 08 03:54 Interpretation: Normal except: AST 48; GLOB 4.2; A/G 0.9. 06/08 03:17 Order name: Lipase; Complete Time: 03:54 EDMS 06/08 03:55 Interpretation: Within normal limits: LIP 84. tw4 06/08 03:17 Order name: CBC with Automated Diff; Complete Time: 03:54 EDMS 06/08 03:54 Interpretation: Normal except: WBC 11.1; HGB 10.3; HCT 32.9; MCV 70.6; MCH 22.1; MCHC tw4 31.4; RDW 17.0. 06/08 04:40 Order name: Abdomen EDMS 06/08 05:51 Order name: Urine --Ancillary (enter results) tt3 06/08 05:51 Order name: Urine Dipstick--Ancillary (enter results) tt3 06/08 02:59 Order name: IV Saline Lock; Complete Time: 03:17 tw4 06/08 02:59 Order name: Labs collected and sent; Complete Time: 03:17 tw4 06/08 03:01 Order name: Urine Dipstick-Ancillary (obtain specimen); Complete Time: 06:05 tw4 Administered Medications: 03:16 Drug: NS 0.9% 1000 ml Route: IV; Rate: 1 bolus; Site: right antecubital; ao 06:23 Follow up: IV Status: Completed infusion; IV Intake: 1000ml ao 03:17 Drug: morphine 4 mg Route: IVP; Site: right antecubital; ao 03:44 Follow up: Response: No adverse reaction; Pain is unchanged, physician notified ao 03:17 Drug: Zofran (Ondansetron) 4 mg Route: IVP; Site: right antecubital; ao 03:44 Follow up: Response: No adverse reaction ao 04:04 Drug: fentaNYL (PF) 25 mcg Route: IVP; Site: right forearm; ao 04:42 Follow up: Response: No adverse reaction ao 04:42 Drug: TORadol 30 mg Route: IVP; Site: right antecubital; ao 06:05 Follow up: Response: No adverse reaction; Pain is decreased ao 06:15 Drug: traMADol 50 mg {Note: Rass 0.} Route: PO; ao 06:23 Follow up: Response: No adverse reaction ao Disposition: 06/08/20 06:03 Discharged to Home. Impression: Right upper quadrant abdominal tenderness. - Condition is Stable. - Discharge Instructions: Abdominal Pain, Adult, Abdominal Pain, Adult, [id number]. - Prescriptions for Tramadol 50 mg Oral Tablet - take 1 tablet by ORAL route every 8 hours as needed; 12 tablet. - Medication Reconciliation Form, Thank You Letter, Antibiotic Education, Prescription Opioid Use form. - Follow up: Private Physician; When: Upon discharge from the Emergency Department; Reason: Recheck today's complaints, Continuance of care, Re-evaluation by your physician. - Problem is new. - Symptoms have improved. Signatures: Dispatcher [employer] EDBenita Cottrell RN RN bb Ortiz, Alex, RN RN ao Wadley, Terrence, MD MD tw4 Corrections: (The following items were deleted from the chart) 06:51 06:03 06/08/2020 06:03 Discharged to Home. Impression: Right upper quadrant abdominal ao tenderness. Condition is Stable. Forms are Medication Reconciliation Form, Thank You Letter, Antibiotic Education, Prescription Opioid Use. Follow up: Private Physician; When: Upon discharge from the Emergency Department; Reason: Recheck today's complaints, Continuance of care, Re-evaluation by your physician. Problem is new. Symptoms have improved. tw4
[2020-06-08] MEDS ORDERED: TRAMADOL HCL 50 MG TAB ONE (06:26)
[2020-06-08 07:00] VITALS: TEMP 98
[2020-06-08 07:02] VITALS: BP 132/71; O2SAT 97
[2020-06-08 08:10] LABS: Urine Blood NEGATIVE (NEG); Urine Glucose NEGATIVE (NEG); Urine Protein NEGATIVE (NEG)
--- NOTE | 2020-06-09 10:56 | RAD REPORT ---
EXAM DESCRIPTION: CT - Abdomen Pelvis W Contrast - 06/08/2020 7:11 am CLINICAL HISTORY: Abdominal pain COMPARISON: None. TECHNIQUE: CT ABDOMEN PELVIS WITH IV CONTRAST on 06/08/2020 4:39 AM CDT This exam was performed according to our departmental dose-optimization program, which includes autom ated exposure control, adjustment of the mA and/or kV according to patient size and/or use of iterati ve reconstruction technique. FINDINGS: Lower lungs are clear. Abdomen: The liver is normal in appearance. There is no biliary dilatation. Recent cholecystectomy wa s performed. There is small amount of residual fluid and air at the cholecystectomy site. There are p ostoperative changes of the upper stomach. The pancreas and spleen are normal in appearance. The adre nal glands and kidneys are unremarkable. Abdominal aorta is normal in course and caliber without aneurysm. There is minimal free air anterior to the upper pole of the right kidney. There is no retroperitoneal adenopathy. There is a small fat-c ontaining umbilical hernia. Pelvis: There is no bowel obstruction. Urinary bladder is unremarkable. There is moderate amount of f ree pelvic fluid. Uterus is normal in size. Left ovarian cyst measures 3.8 cm. Appendix is not well s een. Skeleton: There are no acute osseous findings. No suspicious bony lesions. IMPRESSION: Small amount of postoperative air and fluid in the cholecystectomy fossa. No convincing abscess. Electronically signed by: Frederick Dias MD 06/08/2020 5:19 AM CDT Due to temporary technical issues with the PACS/Fluency reporting system, reports are being signed by the in house radiologist without review as a courtesy to ensure prompt reporting. The interpreting r adiologist is fully responsible for the content of the report.
== END 2020-06-08 06:51 | disposition home or self-care (01) ==
LOC: ER 02:48
DX: R10.811 Right upper quadrant abdominal tenderness (principal); Z98.84 Bariatric surgery status
CPT/HCPCS: 85025; 80048; 36415; 81025; 80076; 81003; 83690; 74177; Q9967; J3010; J7030; J2405; 96361; 96374; 96375; 99284